=== PATIENT | male | born 1945 | race African-American/Black ===

== ENCOUNTER → 2017-12-05 | Outpatient (CLI) | payer OTHER ==
[~2017-12-05] MED LIST: ALLOPURINOL 10100 M1 PO; APAP500 PO; ASPIR 8181 MG PO; ASPIRIN BUFFER325 MG PO; ASPIRIN EC325 M1 PO; CIPRO250 M1 PO; CITRATE OF MAG296 ML PO; COLCHICINE0.6 MG PO; COZAAR 25 MG TA25 M1 PO; EFFIENT10 MG PO; FLAX SEED OIL1 EACH PO; HUMALOG100 UNIT/1 SQ; IMDUR 60 MG TAB60 M1 PO; INDERAL LA60 MG PO; LANTUS; LANTUS SUBQ; LISINOPRIL20 MG; LISINOPRIL20 MG PO; LIVALO4 MG PO; METHIMAZOLE5 MG PO; MOBIC15 MG PO; NITROGLYCERIN0.4 MG SL; NITROQUICK0.4 MG SL; NORVASC5 MG PO; NOVOLIN R100 UNIT/1 SUBQ; NOVOLOG100 UNIT/1 SUBQ; PLAVIX 75 MG TA75 MG PO; PRAVACHOL80 MG PO; PRAVASTATIN SOD40 MG PO; THYROID; TOPROL XL25 MG PO; TOPROL XL50 MG PO; VITAMIN D1000 UNI1 PO; ZESTRIL10 MG PO; ZETIA10 MG PO; ZOFRAN ODT4 MG PO
== END ==
LOC: MRI 08:48
DX: M19.012 Primary osteoarthritis, left shoulder (principal)

== ENCOUNTER → 2018-11-19 | Outpatient (CLI) | payer OTHER | LOC: ULTRA 13:04 | DX: I73.9 Peripheral vascular disease, unspecified (principal); I99.8 Other disorder of circulatory system; I25.10 Atherosclerotic heart disease of native coronary artery without angina pectoris ==

== ENCOUNTER → 2019-03-03 | Outpatient (CLI) | payer OTHER ==
[~2019-03-03] VITALS: Ht 170.2 cm; Wt 78.9 kg
[2019-03-03 12:01] VITALS: BP 146/66
--- NOTE | 2019-03-04 09:14 | EKG ---
[address] [place] [address] ELECTROCARDIOGRAM REPORT Name: SIRENA SNYDER Room #: REG CLI BernadineMarlinBernadine#: [id number] ������������������ Admission: 03/03/19 ������������������ Attend Phys: Kevin Ybarra MD Discharge: ������������������ Date of : 49 Report #: [id number] ����������������������������������������������������������������� [id number] THIS REPORT FOR: //name// [facility] Test Date: 2019-03-03 Test Time: 12:06:51 Pat Name: SIRENA SNYDER Department: Room: Gender: Tim[place]eller: Mendoza GILMORE : 1945 Requested By: Kevin Ybarra Order Number: [id number] MD: Reynaldo Messer Measurements Intervals [place] Rate: 48 P: 57 W[place]: 165 QRS: 41 QRSD: 90 T: 56 QT: 432 QTc: 386 Interpretive Statements Sinus bradycardia Probable left ventricular hypertrophy Compared to ECG 09/07/2017 12:42:40 no significant change was found Electronically Signed On 03-04-2019 9:13:59 CDT by Reynaldo Messer [email or web address] ��������������������������������������������� <ELECTRONICALLY SIGNED> ���������������������������������������� By: Reynaldo Messer MD, [facility] ��������������������������������������������� 03/04/19 0913 1206 05 Reynaldo Messer MD, FACC /EPI
== END | disposition home or self-care (01) ==
LOC: SPEC 08:46
DX: I70.248 Atherosclerosis of native arteries of left leg with ulceration of other part of lower leg (principal); L97.929 Non-pressure chronic ulcer of unspecified part of left lower leg with unspecified severity; I70.1 Atherosclerosis of renal artery; I10 Essential (primary) hypertension; I25.10 Atherosclerotic heart disease of native coronary artery without angina pectoris; I25.2 Old myocardial infarction; E11.9 Type 2 diabetes mellitus without complications; E78.5 Hyperlipidemia, unspecified; M19.90 Unspecified osteoarthritis, unspecified site; Z85.46 Personal history of malignant neoplasm of prostate; Z95.1 Presence of aortocoronary bypass graft; Z79.4 Long term (current) use of insulin; Z82.49 Family history of ischemic heart disease and other diseases of the circulatory system; Z88.8 Allergy status to other drugs, medicaments and biological substances; Z79.82 Long term (current) use of aspirin; Z79.899 Other long term (current) drug therapy; Z98.890 Other specified postprocedural states

== ENCOUNTER → 2019-10-19 | Outpatient (CLI) | payer OTHER | LOC: SJCVC 15:19 | DX: R00.1 Bradycardia, unspecified (principal); I25.810 Atherosclerosis of coronary artery bypass graft(s) without angina pectoris; E78.00 Pure hypercholesterolemia, unspecified; I73.9 Peripheral vascular disease, unspecified; I25.5 Ischemic cardiomyopathy; I10 Essential (primary) hypertension; E11.9 Type 2 diabetes mellitus without complications; Z79.4 Long term (current) use of insulin; Z95.1 Presence of aortocoronary bypass graft; Z79.899 Other long term (current) drug therapy ==

== ENCOUNTER → 2020-01-06 | Outpatient (CLI) | payer OTHER ==
[~2020-01-06] MED LIST changes: +ALLOPURINOL 10100 M3 PO; +DIOVAN160 MG PO; +METOPROLOL SUCC50 MG PO; +NEURONTIN100 MG PO; +ROSUVASTATIN CA20 MG PO
== END ==
LOC: SJCVCIMAG 08:46 → SJCVC 08:46 → SJCVCIMAG 09:07
DX: I65.23 Occlusion and stenosis of bilateral carotid arteries (principal); I70.201 Unspecified atherosclerosis of native arteries of extremities, right leg; I25.10 Atherosclerotic heart disease of native coronary artery without angina pectoris; E11.9 Type 2 diabetes mellitus without complications; E78.00 Pure hypercholesterolemia, unspecified; I12.9 Hypertensive chronic kidney disease with stage 1 through stage 4 chronic kidney disease, or unspecified chronic kidney disease; N18.9 Chronic kidney disease, unspecified; Z95.1 Presence of aortocoronary bypass graft

== ENCOUNTER 2020-01-10 07:57 | Observation (INO) | payer OTHER ==
[~2020-01-10] VITALS: Ht 172.7 cm; Wt 76.7 kg
[~2020-01-10 07:57] MED LIST changes: -ALLOPURINOL 10100 M3 PO; -DIOVAN160 MG PO; -METOPROLOL SUCC50 MG PO; -NEURONTIN100 MG PO; -ROSUVASTATIN CA20 MG PO
[2020-01-10 08:57] LABS: HEMATOCRIT 35.7 % (42.0-52.0); HEMOGLOBIN 11.8 gm/dL (14.0-18.0); MCH 32.3 pg (26.0-34.0); MCHC 33.1 g/dL (28.0-37.0); MCV 97.7 fL (80.0-100.0); RBC 3.65 mil/uL (4.50-6.00); RDW 12.7 % (10.5-14.5); WBC 6.9 thou/uL (4.0-11.0)
[2020-01-10 09:03] VITALS: BP 160/65
[2020-01-10 09:12] LABS: CALCIUM 9.5 mg/dL (8.5-10.1); CREATININE 1.7 mg/dL (0.7-1.3); POTASSIUM 5.1 mmol/L (3.5-5.1)
[2020-01-10] MEDS ORDERED: METOPROLOL SUCC50 MG PO (09:14)
[2020-01-10] MEDS ORDERED: ALLOPURINOL 10100 M3 PO (09:16)
[2020-01-10] MEDS ORDERED: NEURONTIN100 MG PO (09:17)
[2020-01-10] MEDS ORDERED: ROSUVASTATIN CA20 MG PO (09:17)
[2020-01-10] MEDS ORDERED: DIOVAN160 MG PO (09:18)
--- NOTE | 2020-01-10 11:09 | EKG ---
[facility] [place] [address] ELECTROCARDIOGRAM REPORT Name: SIRENA SNYDER [id number] Admission: 01/10/20 Attend Phys: Kevin Ybarra MD Discharge: Date of : 49 Report #: [id number] THIS REPORT FOR: cc: Kevin Snider David J. DO Couchonnal, Luis F. MD ~ THIS REPORT FOR: //name// [facility] Test Date: 2020-01-10 Test Time: 08:52:15 Pat Name: SIRENA SNYDER Department: Room: Gender: Grid Operator: : 1945 Requested By: Nima Loza Order Number: [id number] : Michel Rogers Measurements Intervals [place] Rate: 58 P: 66 MD: 157 QRS: 53 QRSD: 90 T: 65 QT: 435 QTc: 428 Interpretive Statements Sinus rhythm Probable left atrial enlargement Probable left ventricular hypertrophy Baseline wander in lead(s) II,III,aVF Compared to ECG 03/03/2019 12:06:51 Sinus bradycardia no longer present Electronically Signed On 01-10-2020 11:08:09 CDT by Michel Rogers [email or web address] <ELECTRONICALLY SIGNED> By: Michel Rogers MD 01/10/20 1108 0852 0852 Michel Rogers MD /EPI
[2020-01-10 17:20] VITALS: BP 150/69
[2020-01-10 17:25] VITALS: BP 150/69
--- NOTE | 2020-01-10 18:49 | NUR ---
PT CARE ASSUMED APPROXIMATELY 0725. PT ASSESSMENT CHARTED. PT MEDICATION CHARTED. RT STENT POPLITEAL ARTERY, SOLEDAD. LT GROIN STENT, SOFT C/D/I. HEART CATH NO INTERVENTION. HEMOSTASIS 164. PT DENIES PAIN.
[2020-01-10 19:41] VITALS: BP 186/67
[2020-01-10 21:48] VITALS: BP 186/67
--- NOTE | 2020-01-11 10:49 | CATHLAB ---
[facility] [place] [address] INVASIVE PROCEDURE REPORT Name: SIRENA SNYDER Room #: 201-P [facility] Aureliano Mcclure#: [id number] Admission: 01/10/20 Attend Phys: Kevin Ybarra MD Discharge: 01/10/20 Date of : 49 Report #: [id number] THIS REPORT FOR: cc: Kevin Snider David J. DO Mancuso, Gerald M. MD [facility] ~ APPROVED REPORT Study performed: 01/10/2020 16:00:37 Patient Details The patient is a 74 year-old male Event Personnel Kevin Ybarra Interventional Radiologist, Sandra Logan RN RN, Zeferino Izaguirre RT(R)(CV) Luis M Nicole Sherra RTR Monitor, Gaby Cervantes RTR Sheet Catcher, Janet Cole Monitor, Nima Loza Lead Operator Procedures Performed Left Heart Cath Coronaries, Bypass Grafts [id number] LHCCORCABG 42072 Initial Mod Sed Same Phys/QHP Gr5y 663140 54893 Mod Sed Same Phys/QHP Ea [id number] Hemostasis w/ Mynx Indication Chest pain Procedure Narrative The was infiltrated with 1% Lidocaine subcutaneous anesthesia. A 6F SHEATH sheath was inserted into the LFA^. Coronary angiography was performed using coronary diagnostic catheters. The right coronary system was accessed and visualized with a JR4 catheter. The left coronary system was accessed and visualized with a JL4 catheter. The left ventricle was accessed and visualized with a STR PIG catheter. Left ventriculogram was performed in 30 degree projection. The patient tolerated the procedure well and there were no complications associated with the procedure. There was no hematoma. 2 GRAFTS, BELTRAN TO LAD AND SVG TO OM. Intraoperative Conscious Sedation Sedation start time: 1604 Case end Time: 1640 Fentanyl mcg Versed 1 mg [facility] [place] [address] INVASIVE PROCEDURE REPORT Name: LILLIANSIRENA Room #: 201-P [facility] IN M.R.#: [id number] Admission: 01/10/20 Attend Phys: Kevin Ybarra, Discharge: 01/10/20 Date of : 49 Report #: [id number] Fluoro Time: 1427.00 minutes Dose: DAP 76271.50 cGycm2 459 mGy Contrast Type and Amount: Visipaque 62 ml Hemodynamics The aortic pressure is 132/56 mmHg with a mean of 84 mmHg. The left ventricular pressure is 136/8 mmHg with a mean of mmHg. The left ventricular end diastolic pressure is 16 mmHg. PCI Technique Lesion Percutaneous coronary intervention was performed on the Popliteal. Conclusion #1. Normal left ventricular size and systolic function EF 60% #2 mildly diseased left main giving rise to the circumflex nondominant and an occluded LAD. #3 the LAD is eccentric 60 to 70% lesion and then is subtotaled after the septal gas producer. #4 BELTRAN to LAD is widely patent. Briskly fills the distal two thirds of the LAD. There is a stent placed in the LAD and distal to that stent there is a 50 to 60% eccentric lesion no occlusive disease noted. #5 circumflex OM the first OM is occluded this is filling the diffusely diseased distal circumflex and OM system. Not amenable to intervention. Is supplying some portion of the posterior inferior lateral wall. #6 saxman right coronary artery occluded #7 the SVG to the PDA occluded #8 SVG to diagonal occluded #9 SVG to a small first OM is patent with mild irregularities some supplied to the posterior lateral wall. No occlusive disease Recommendations and plan: Continue aggressive risk factor modification. No indication for coronary intervention. <ELECTRONICALLY SIGNED> By: Nima Loza MD, [facility] 01/11/20 1047 1047 1047 Nima Loza MD, FACC /INF
== END 2020-01-10 21:35 | disposition home or self-care (01) ==
LOC: CATH 07:57 → 2N 17:45
PROVIDERS: Internal Medicine Cardiovascular Disease; ADMIT Nuclear Medicine Nuclear Cardiology
DX: I70.212 Atherosclerosis of native arteries of extremities with intermittent claudication, left leg (principal); I10 Essential (primary) hypertension; L97.919 Non-pressure chronic ulcer of unspecified part of right lower leg with unspecified severity

== ENCOUNTER → 2020-01-11 | Outpatient (CLI) | payer OTHER ==
[~2020-01-11] MED LIST changes: +ALLOPURINOL 10100 M3 PO; +DIOVAN160 MG PO; +METOPROLOL SUCC50 MG PO; +NEURONTIN100 MG PO; +ROSUVASTATIN CA20 MG PO
== END ==
LOC: HYPER 10:12
DX: I70.235 Atherosclerosis of native arteries of right leg with ulceration of other part of foot (principal); E11.621 Type 2 diabetes mellitus with foot ulcer; L97.512 Non-pressure chronic ulcer of other part of right foot with fat layer exposed; E11.51 Type 2 diabetes mellitus with diabetic peripheral angiopathy without gangrene; M19.90 Unspecified osteoarthritis, unspecified site; I25.10 Atherosclerotic heart disease of native coronary artery without angina pectoris; E78.00 Pure hypercholesterolemia, unspecified; I11.0 Hypertensive heart disease with heart failure; I50.9 Heart failure, unspecified; E78.5 Hyperlipidemia, unspecified; I25.2 Old myocardial infarction; Z85.46 Personal history of malignant neoplasm of prostate; Z86.718 Personal history of other venous thrombosis and embolism; Z79.82 Long term (current) use of aspirin; Z79.4 Long term (current) use of insulin; Z90.5 Acquired absence of kidney; Z95.1 Presence of aortocoronary bypass graft

== ENCOUNTER 2020-01-23 17:24 | Inpatient (IN) | payer OTHER ==
[~2020-01-23] VITALS: Ht 172.7 cm; Wt 74.4 kg
--- NOTE | ~2020-01-23 | EMS ---
[address] [address] EMS Patient Care Report Name: SIRENA SNYDER Room #: 208-P [facility] IN M.R.#: [id number] Admission: 01/23/20 Attend Phys: Shira Sousa MD Discharge: 01/25/20 Date of : 49 Report #: [id number] THIS REPORT FOR: //name// Report Transmitted: 01/27/2020 12:13 EMS Care Summary [place], [place]/[facility] Incident [id number] @ 01/23/2020 16:38 Incident Location [address] [place] [address] Patient SIRENA SNYDER Male, 74 Years 1945 Patient Address [address] [place] [address] Patient History Diabetes,Cardiac - Stent, Patient Allergies Codeine, Patient Medications Insulin, Chief Complaint NEAR SYNCOPE Disposition Transported No Lights/[place] Dispatch Reason Falls Transported To [facility] Narrative PT FOUND LYING SUPINE ON FLOOR IN BEDROOM OF HIS HOME. PT STATES THAT HE WAS GETTING OUT OF BED AND "EVERYTHING GOT BLURRY" AND HIS LEGS GAVE OUT AND HE FELL TO THE FLOOR. PT DENIES ANY INJURY FROM FALLING. PT STATES THAT ONE EMS ARRIVAL HE FEELS A LITTLE BETTER BUT IS STILL DIZZY. PT IS DIAPHORETIC AND [facility] [address] [place] [address] EMS Patient Care Report Name: SIRENA SNYDER Room #: 208-P [facility] IN M.R.#: [id number] Admission: 01/23/20 Attend Phys: Shira Sousa MD Discharge: 01/25/20 Date of : 49 Report #: [id number] COOL. PT ASSISTED TO HIS FEET BY EMS AND HE STATES THAT HE REMAINS DIZZY BUT IT DOES NOT GET WORSE. PT STATES THAT HE HAD TWO CARDIAC STENTS PLACED LAST WEEK. PT AGREES TO TRANSPORT BY EMS. PT HS NO VISIBLE TRAUMA. PT HAS NO COMPLAINTS OF PAIN, SOB, CP OR TRAUMA. NO CHANGES NOTED ENROUTE. Initial Vitals @17:00P: 59,SC Suspected: false @17:01P: 62,SpO2: 83, @16:55P: 55,R: 16,BP: 122/66,Pain: 0/10,GCS: 15,Glucose: 70,SpO2: 100,Revised Trauma: 12, Assessments @16:46MENTAL:No Abnormalities,SKIN:Diaphoresis,HEENT:Head/Face: No Abnormalities,LUNG SOUNDS:General: No Abnormalities,ABDOMEN:General: No Abnormalities,PELVIS//GI:No Abnormalities,EXTREMITIES:PULSE:NEURO:No Abnormalities, Impression Syncope / Fainting Procedures @16:46ALS AssessmentResponse: UnchangedSucceeded@17:0012-Lead ECGResponse: UnchangedSucceeded@16:593-Lead ECGResponse: UnchangedSucceeded@16:59Saline Lock 0cc (18 ga) Site: Antecubital-LeftResponse: UnchangedSucceeded@16:58StretcherResponse: Unchanged Timeline 16:35,Call Received 16:35,Dispatch Notified 16:38,Dispatched 16:39,En Route 16:45,On Scene 16:46,At Patient 16:46,ALS Assessment,Response: UnchangedSucceeded, 16:55,BP: 122/66 M,PULSE: 55,RR: 16 R,SPO2: 100 Ox,ETCO2: ,B,PAIN: 0,GCS: 15, 16:58,Stretcher,Response: Unchanged 16:59,3-Lead ECG,Response: UnchangedSucceeded, 16:59,Saline Lock 0cc 18 ga Site: Antecubital-Left,Response: UnchangedSucceeded, 17:00,12-Lead ECG,Response: UnchangedSucceeded, 17:00,BP: / M,PULSE: 59,RR: R,SPO2: Ox,ETCO2: ,BG: ,PAIN: ,GCS: , 17:01,BP: / M,PULSE: 62,RR: R,SPO2: 83 Ox,ETCO2: ,BG: ,PAIN: ,GCS: , 17:03,Depart Scene 17:19,At Destination 17:31,Call Closed [facility] [address] [place] [address] EMS Patient Care Report Name: LILLIANSIRENA Room #: 208-P [facility] IN M.R.#: [id number] Admission: 01/23/20 Attend Phys: Shira Sousa MD Discharge: 01/25/20 Date of : 49 Report #: [id number] Disclaimer v1.1 Copyright 2020 [employer] This EMS Care Summary contains data elements from the applicable legal record (which may be displayed differently). It is designed to provide pertinent information for the following purposes: continuity of care, clinical quality, and state data reporting. The complete legal record is available to ED staff and administrators of the receiving hospital in [employer] Patient Tracker. All data is provided "as is."
[2020-01-23 17:25] VITALS: BP 152/67
[2020-01-23 17:49] LABS: HEMATOCRIT 34.5 % (42.0-52.0); HEMOGLOBIN 11.3 gm/dL (14.0-18.0); MCH 31.8 pg (26.0-34.0); MCHC 32.6 g/dL (28.0-37.0); MCV 97.4 fL (80.0-100.0); RBC 3.54 mil/uL (4.50-6.00)
[2020-01-23 17:56] LABS: ANION GAP 11 mmol/L (7-16); BUN 52 mg/dL (7-18); CALCIUM 9.5 mg/dL (8.5-10.1); CHLORIDE 103 mmol/L (98-107); CO2 24 mmol/L (21-32); GLUCOSE 47 mg/dL (74-106); POTASSIUM 4.8 mmol/L (3.5-5.1); SODIUM 138 mmol/L (136-145)
[2020-01-23 18:06] LABS: ALBUMIN 3.1 g/dL (3.4-5.0); DIRECT BILIRUBIN < 0.1 mg/dL (<0.1-0.2); SGOT 29 U/L (15-37); SGPT 27 U/L (30-65); TOTAL BILIRUBIN 0.3 mg/dL (<0.1-1.0); TOTAL PROTEIN 7.8 g/dL (6.4-8.2); TROPONIN-I <0.06 ng/mL (<0.06)
--- NOTE | 2020-01-23 18:54 | NUR ---
JOSE [phone], DAUGHTER. OK TO TALK WITH PER PT. PLEASE CALL WITH UPDATE
[2020-01-23 19:47] VITALS: BP 110/92
[2020-01-23 20:23] VITALS: BP 139/63
[2020-01-23 20:26] LABS: URINE BILIRUBIN NEGATIVE (Negative); URINE BLOOD 1+ (Negative); URINE CLARITY CLEAR; URINE COLOR YELLOW; URINE GLUCOSE-RANDOM* NEGATIVE (Negative); URINE KETONES NEGATIVE (Negative); URINE LEUKOCYTES-REFLEX NEGATIVE (Negative); URINE NITRITE-REFLEX NEGATIVE (Negative); URINE PROTEIN (DIPSTICK) 2+ (Negative); URINE SPECIFIC GRAVITY 1.025 (1.005-1.035); URINE UROBILINOGEN 0.2 E.U./dl (0.2-1.0)
[2020-01-23 20:37] LABS: BACTERIA-REFLEX 1-9 Few /HPF (None Seen); CASTS None Seen /LPF (None Seen); CRYSTALS None Seen /LPF (None Seen); SQUAMOUS 0-3 Few /LPF (0-3); URINE RBC 0-2 Rare /HPF (0-2); URINE WBC-REFLEX 0-5 Rare /HPF (0-5)
[2020-01-24 00:21] VITALS: BP 139/63
[2020-01-24 04:40] VITALS: BP 148/71
[2020-01-24 05:22] LABS: ANION GAP 8 mmol/L (7-16); BUN 48 mg/dL (7-18); CALCIUM 8.6 mg/dL (8.5-10.1); CHLORIDE 104 mmol/L (98-107); CO2 25 mmol/L (21-32); CREATININE 1.9 mg/dL (0.7-1.3); GLUCOSE 297 mg/dL (74-106); SODIUM 137 mmol/L (136-145); TROPONIN-I <0.06 ng/mL (<0.06)
[2020-01-24 05:23] LABS: POTASSIUM 5.9 mmol/L (3.5-5.1)
[2020-01-24 07:30] VITALS: BP 147/62
--- NOTE | 2020-01-24 07:57 | EKG ---
[facility] [place] [address] ELECTROCARDIOGRAM REPORT Name: SIRENA SNYDER Room #: 208-P ADM IN M.R.#: [id number] Admission: 01/23/20 Attend Phys: Philippe Morrissey MD Discharge: Date of : 49 Report #: [id number] THIS REPORT FOR: cc: Kevin Snider David J. DO Lundgren,Reynaldo Porras MD [facility] ~ THIS REPORT FOR: //name// [facility] ED Test Date: 2020-01-23 Test Time: 17:40:40 Pat Name: SIRENA SNYDER Department: Room: 208 Gender: M Nursing Clinical Director: ENOC : 1945 Requested By: Lisa Ulloa Order Number: [id number] MD: Reynaldo Messer Measurements Intervals [place] Rate: 54 P: 25 [place]: 161 QRS: 37 QRSD: 92 T: 71 QT: 418 QTc: 397 Interpretive Statements Sinus rhythm Abnormal R-wave progression, early transition Early R wave progression Compared to ECG 01/10/2020 08:52:15 No significant changes Electronically Signed On 01-24-2020 7:55:49 CDT by Reynaldo Messer [email or web address] <ELECTRONICALLY SIGNED> By: Reynaldo Messer MD, [facility] 01/24/20 0755 1740 1740 Reynaldo Messer MD, [facility] /EPI
--- NOTE | 2020-01-24 08:22 | NUR ---
RECEIVED REPORT FROM [facility] ED RN.PATIENT ARRIVED TO ROOM 208 AROUND 2019.PATIENT IS A/O X 4.PATIENT WISHES TO BE DNR AND OBTAINED AN ORDER FROM THE GEOPHYSICS SCIENTIST.DENIES PAIN BUT CLAIMED THAT IN THE ED RIGHT TOE WOUND HAS BURNING SENSATION AND ITS THROBBING.PICTURE TAKEN.MONITOR SHOWS SINUS GIANNA ARRHYTHMIA IN THE 47'S TO 63'S.BLOOD GLUCOSE IN THE ED IS 47, HERE IS 67.APPLE JUICE AND SANDWICH WAS GIVEN AND BLOOD GLUCOSE INCREASED TO 98.THIS MORNING POTASSIUM LEVEL IS 5.9.D50 AND REGULAR INSULIN WAS GIVEN AND RT WAS CALLED FOR A HIGH DOSE BREATHING TREATMENT.CARDIOLOGY WAS CONSULTED.POC CONTINUED.
--- NOTE | 2020-01-24 09:37 | NUR ---
REPORT RECIEVED FROM SILVIO BISHOP. PT ASSESSED, ALERT AND ORIENTED X 4, DENIES PAIN, BUT HAS OCCASIONAL PAIN IN HIS RIGHT GREAT TOE. HE SAID HE DOENS'T TAKE PAIN MEDS FOR IT, SITTING AND LETTING IT DANGLE OFF THE SIDE OF THE BED HELPS. VSS, CARDIOLOGY FARM BUTCHER IN TO SEE PT, PT STATED HE HAD SOME LEFT SIDED CHEST TIGHTNESS. IT WAS RELIEVED BY LYING DOWN, CARD FARM BUTCHER IN TO SEE PT AND SAID SHE'LL LET SRINIVASA KNOW. CALL LIGHT AT SIDE, WILL MONITOR. SPOKE WITH AMEYA ABOUT FATHER.
[2020-01-24 10:00] LABS: CALCIUM 8.8 mg/dL (8.5-10.1); MAGNESIUM 2.1 mg/dL (1.8-2.4); PHOSPHORUS 2.8 mg/dL (2.5-4.9); POTASSIUM 5.1 mmol/L (3.5-5.1)
--- NOTE | 2020-01-24 11:18 | 2DMMODE ---
[facility] [place] [address] 2 D/M-MODE ECHOCARDIOGRAM Name: SIRENA SNYDER Room #: 208-P ADM IN M.R.#: [id number] Admission: 01/23/20 Attend Phys: Shira Sousa MD Discharge: Date of : 49 Report #: [id number] THIS REPORT FOR: cc: Kevin Snider David J. DO Mancuso, Gerald M. MD [facility] ~ APPROVED REPORT Study performed: 01/24/2020 10:26:37 EXAM: Comprehensive 2D, Doppler, and color-flow Echocardiogram Patient Location: Bedside Room #: 208 Status: routine BSA: 1.88 HR: 69 bpm BP: 147/62 mmHg Rhythm: Sinus arrhythmia Other Information Study Quality: Adequate Indications Near syncope, bradycardia. Hx: CABG, stent, PVD, HTN, HLP. 2D Dimensions RVDd: 40.54 mm IVSd: 13.00 (7-11mm) LVOT Diam: 22.38 (18-24mm) LVDd: 42.00 mm PWd: 13.00 (7-11mm) Ascending Ao: 33.36 (22-36mm) LVDs: 24.56 (25-40mm) Aortic Root: 35.15 mm Volumes Left Atrial Volume (Systole) Single Plane 4CH: 40.26 mL Single Plane 2CH: 38.75 mL LA ESV Index: 23.00 mL/m2 Aortic Valve AoV Peak Demian.: 1.84 m/s AO Peak Gr.: 13.52 mmHg LVOT Max P.34 mmHg LVOT Max V: 1.35 m/s NOLBERTO Vmax: 2.[address] [facility] [address] [place] [address] 2 D/M-MODE ECHOCARDIOGRAM Name: SIRENA SNYDER Room #: 208-P [facility] IN ..#: [id number] Admission: 01/23/20 Attend Phys: Shira Sousa, Discharge: Date of : 49 Report #: [id number] Mitral Valve E/A Ratio: 1.4 MV Decel. Time: 173.67 ms MV E Max Demian.: 0.83 m/s MV A Demian.: 0.58 m/s MV PHT: 50.36 ms IVRT: 59.98 ms Pulmonary Valve PV Peak Demian.: 1.38 m/s PV Peak Gr.: 7.60 mmHg Pulmonary Vein P Vein S: 0.87 m/s P Vein D: 0.76 m/s P Vein S/D Ratio: 1.14 Tricuspid Valve TR Peak Demian.: 2.91 m/s RAP Estimate: 5.00 mmHg TR Peak Gr.: 34.00 mmHg PA Pressure: 39.00 mmHg Left Ventricle The left ventricle is normal size. There is normal LV segmental wall motion. Mild to moderate concentric left ventricular hypertrophy. Left ventricular systolic function is hyperdynamic. LVEF is 65-70%. Right Ventricle The right ventricle is normal size. The right ventricular systolic function is normal. Atria The left atrium size is normal. The right atrium size is normal. Aortic Valve Aortic valve is mildly calcified. No aortic regurgitation is present. There is no aortic valvular stenosis. Mitral Valve The mitral valve is normal in structure. There is no mitral valve regurgitation noted. No evidence of mitral valve stenosis. Tricuspid Valve The tricuspid valve is normal in structure. Mild tricuspid [facility] [address] [place] [address] 2 D/M-MODE ECHOCARDIOGRAM Name: SIRENA SNYDER Room #: 208-P [facility] IN M.R.#: [id number] Admission: 01/23/20 Attend Phys: Shira Sousa, Discharge: Date of : 49 Report #: [id number] regurgitation. Estimated PAP is 40mmHg. Pulmonic Valve The pulmonary valve is normal in structure. Trace pulmonic regurgitation. Great Vessels The aortic root is normal in size. The ascending aorta is normal in size. Pericardium There is no pericardial effusion. <Conclusion> The left ventricle is normal size. Mild to moderate concentric left ventricular hypertrophy. Left ventricular systolic function is hyperdynamic. LVEF is 65-70%. The right ventricle is normal size. The left atrium size is normal. Aortic valve is mildly calcified. There is no aortic valvular stenosis. There is no mitral valve regurgitation noted. Mild tricuspid regurgitation. Estimated PAP is 40mmHg. The aortic root is normal in size. There is no pericardial effusion. <ELECTRONICALLY SIGNED> By: Nima Loza MD, FACC 01/24/20 1116 15 15 Nima Loza MD, FACC /INF
[2020-01-24 11:30] VITALS: BP 144/55
--- NOTE | 2020-01-24 14:50 | NUR ---
ORDERS RECEIVED FOR EVAL AND TREAT. Pt HAD NEAR SYNCOPAL EPISODE DUE TO HYPOGLYCEMIA AND NOW BACK TO NORMAL. SPOKE WITH Pt WHO STATES HE HAS BEEN GETTING UP WITHOUT DIFFICULTY. MAIN COMPLAINT IS RT GREAT TOE PAIN. WOUND CARE IS ON BOARD. O.T. EVALUATED Pt AND ARE SIGNING OFF. Pt DECLINING FORMAL P.T. EVAL HE FEELS BACK TO NORMAL. WILL BE AVAILABLE TO DO FORMAL EVAL IF Pt HAS Pt HAS PROCEDURES ON GREAT TOE AND NOT MOVING WELL.
[2020-01-24 16:30] VITALS: BP 175/69
--- NOTE | 2020-01-24 18:22 | NUR ---
BLADDER SCAN DONE, 300 RESIDUAL
[2020-01-24 20:51] VITALS: BP 152/62
[2020-01-25 05:30] LABS: ABSOLUTE NEUTROPHILS 5.6 thou/uL (1.4-8.2); BASOPHILS 0.8 % (0.0-2.0); EOSINOPHILS 3.7 % (0.0-3.0); HEMATOCRIT 32.3 % (42.0-52.0); HEMOGLOBIN 10.6 gm/dL (14.0-18.0); LYMPHOCYTES 23.7 % (24.0-44.0); MCH 32.2 pg (26.0-34.0); MCHC 32.8 g/dL (28.0-37.0); MCV 98.2 fL (80.0-100.0); MONOCYTES 9.9 % (1.0-8.0); PLATELET COUNT 203 thou/uL (150-400); POLYS 61.9 % (36.0-66.0); RBC 3.28 mil/uL (4.50-6.00); WBC 9.8 thou/uL (4.0-11.0)
[2020-01-25 05:49] LABS: ALBUMIN 2.5 g/dL (3.4-5.0); CALCIUM 8.8 mg/dL (8.5-10.1); CREATININE 1.6 mg/dL (0.7-1.3); MAGNESIUM 2.1 mg/dL (1.8-2.4); POTASSIUM 5.3 mmol/L (3.5-5.1); TOTAL BILIRUBIN 0.3 mg/dL (<0.1-1.0); TOTAL PROTEIN 6.6 g/dL (6.4-8.2)
--- NOTE | 2020-01-25 06:00 | NUR ---
Took over care of pt. around 2099. No syncopal episode. Medicated for right great toe pain with some relief. Bed alarm on for safety. Voiding per urinal. Making progress towards care plan goals.
[2020-01-25 06:05] VITALS: BP 134/54
[2020-01-25 08:00] VITALS: BP 131/57; BP 137/62; BP 154/63
--- NOTE | 2020-01-25 09:55 | NUR ---
Received awake on bed. Due medications
--- NOTE | 2020-01-25 09:58 | NUR ---
Received awake on bed. Due medications given as prescribed, able to swallow meds w/o difficulty. On room air. A+Ox4. On heart monitoting- SB-SR on the monitor; no complaints of chest pain, no heaviness and crushing sensation made. On Renal, carb controlled diet- tolerating well; no nausea, no vomiting and no abdominal pain noted. On blood sugar monitoring, taken and recorded accordingly, with sliding scale insulin ordered- given as prescribed. Continent of bowel and bladder- able to use the urinal. With NS at 75cc/hr, infusing well at R FA. With wound at R great toe- wound team aware, with wound care orders. Assisted in ADLs. No complaints of pain made. To continue monitoring patient.
[2020-01-25] MEDS ORDERED: METOPROLOL SUCC25 M1 PO (12:20)
[2020-01-25 12:39] VITALS: BP 131/57
--- NOTE | 2020-01-25 14:51 | NUR ---
PT ON SERVICE WITH [facility] PRIOR TO ADMISSION DISCHARGING TODAY TO HOME AND RESUME HH WITH [facility] FAXED DC ORDERS/SUMMARY SPOKE WITH KODY IN INTAKE SHE RECEIVED ORDERS AND WILL NOTIFY PT TIME OF VISITS.
[2020-01-26 00:07] LABS: GLYCOHEMOGLOBIN (HGB A1C) 7.1 % (4.8-5.6)
--- NOTE | 2020-01-26 12:05 | HC ---
[facility] [place] [address] CONSULTATION Name: SIRENA SNYDER Room #: 208-P [facility] IN M.R.#: [id number] Admission: 01/23/20 Attend Phys: Shria Sousa MD Discharge: 01/25/20 Date of : 49 Report #: [id number] THIS REPORT FOR: cc: Kevin Snider,Perry Lowery MD ~ CC: Kevin Sousa DATE OF SERVICE: 01/24/2020 CHIEF COMPLAINT: Right great toe ulceration. HISTORY OF PRESENT ILLNESS: This is a 74-year-old male patient who is admitted to the hospital with a near syncopal episode. We have followed him as an outpatient for an ulceration of his right great toe and I have been asked to see him with regard to wound care here in the hospital. The patient did undergo angiography on 01/10/2020, underwent a right peroneal artery atherectomy and stent placement after having been noted to have a critical grade stenosis of the proximal right peroneal artery with additional high-grade stenosis of the mid and distal right peroneal arteries, which were treated with angioplasty and stent placement. He was noted to have previous proximal left posterior tibial artery stent that was visualized to have good patency. Patient denies significant pain in his toe at this time, but does note some dry peeling skin. PAST MEDICAL HISTORY: Positive for history of peripheral vascular disease, status post stent placement in both lower extremities, history of coronary artery disease, diabetes, hypertension, hyperlipidemia, ischemic cardiomyopathy, previous right nephrectomy and history of prostate cancer. ALLERGIES: LIPITOR, CODEINE AND TRAMADOL. MEDICATIONS: Include Lantus insulin, NovoLog insulin, Flaxseed oil, Effient, Nitrostat, allopurinol, Neurontin, rosuvastatin, Diovan, aspirin, Toprol, methimazole. SOCIAL HISTORY: Negative for alcohol or tobacco use. FAMILY HISTORY: Noncontributory. REVIEW OF SYSTEMS: CONSTITUTIONAL: The patient denies fever, chills or weight loss. NEUROLOGICAL: The patient denies focal weakness, did have a syncopal episode. Denies numbness or tingling. EYES: The patient denies visual changes, redness, or drainage. ENT: The patient denies earache, nasal drainage, sore throat. [address] [place] [address] CONSULTATION Name: SIRENA SNYDER Room #: 208-P [facility] IN M.R.#: [id number] Admission: 01/23/20 Attend Phys: Shira Sousa MD Discharge: 01/25/20 Date of : 49 Report #: [id number] CARDIOVASCULAR: The patient denies chest pain or palpitations, did have the syncopal or near syncopal event. He does note some diaphoresis and lightheadedness associated with this. LUNGS: The patient denies cough or shortness of breath. GASTROINTESTINAL: Denies nausea, vomiting, diarrhea or abdominal pain. ORTHOPEDIC: The patient is aware of the ulceration on the right great toe. Other systems are negative in a 14-point review of systems. PHYSICAL EXAMINATION: VITAL SIGNS: At this time, include temperature 36.8, pulse 87, respiratory rate 18, blood pressure 144/55. GENERAL: This is a chronically ill-appearing male patient who appears to be in minimal distress. HEENT: Head normocephalic. Nose and throat clear. NECK: Supple. LUNGS: Clear. ABDOMEN: Soft. Bowel sounds present. EXTREMITIES: Lower extremities demonstrate diminished distal pulses. He does have a large area of eschar involving the medial aspect of the right great toe. There is some dry skin laterally and inferiorly that is peeling away with what appears to be intact epithelium beneath. The eschar is dry and stable and intact. There is a small bit of odor, although do not find any particular drainage and cannot find an exact location for the odor. NEUROLOGIC: The patient is alert and oriented, moving all 4 extremities spontaneously. LABORATORY DATA: Sodium 132, potassium 5.1, chloride 100, BUN 48, creatinine 2.0, glucose is 379. Albumin is 3.1. White blood cell count 10,000 with a hemoglobin of 11.3. CLINICAL IMPRESSION: 1. Arterial ulcer involving the right great toe. 2. Peripheral vascular disease, status post right peroneal artery angioplasty and stent placement within the last 2 weeks. 3. Near syncope. 4. Ischemic cardiomyopathy. 5. Type 2 diabetes mellitus. 6. Hypertension. 7. Hyperlipidemia. RECOMMENDATIONS: At this point in time, the eschar on the toe is dry and stable; therefore, it will be left intact. We will apply "Betadine paint" daily to maintain the eschar dry, stable and intact. We have peeled away some of the dry peeling epidermis laterally. We will recommend continuation of current [facility] [address] [place] [address] CONSULTATION Name: SIRENA SNYDER Room #: 208-P DIS IN M.R.#: [id number] Admission: 01/23/20 Attend Phys: Shira Sousa MD Discharge: 01/25/20 Date of : 49 Report #: [id number] medications, ongoing nutritional support, maintain glycemic control and wound healing. I appreciate being asked to see the patient in consultation. <ELECTRONICALLY SIGNED> By: Perry Huang MD 01/26/20 1205 1044 1119 Perry Huang MD /nt
== END 2020-01-25 14:43 | disposition home health service (06) | DRG 638 ==
LOC: ER 17:24 → 2N 18:40 → EROBS 18:40 → 2N 20:22
PROVIDERS: Emergency Medicine; Nurse Practitioner Family; ADMIT Internal Medicine
DX: E11.649 Type 2 diabetes mellitus with hypoglycemia without coma (principal); E46 Unspecified protein-calorie malnutrition; N17.0 Acute kidney failure with tubular necrosis; N17.9 Acute kidney failure, unspecified; R55 Syncope and collapse; I25.5 Ischemic cardiomyopathy; M19.90 Unspecified osteoarthritis, unspecified site; I25.10 Atherosclerotic heart disease of native coronary artery without angina pectoris; E11.621 Type 2 diabetes mellitus with foot ulcer; E11.51 Type 2 diabetes mellitus with diabetic peripheral angiopathy without gangrene; E86.0 Dehydration; E87.5 Hyperkalemia; L97.519 Non-pressure chronic ulcer of other part of right foot with unspecified severity; E11.22 Type 2 diabetes mellitus with diabetic chronic kidney disease; N18.9 Chronic kidney disease, unspecified; I10 Essential (primary) hypertension; E78.5 Hyperlipidemia, unspecified; Z95.1 Presence of aortocoronary bypass graft; Z85.46 Personal history of malignant neoplasm of prostate; Z90.5 Acquired absence of kidney; Z79.4 Long term (current) use of insulin; Z79.82 Long term (current) use of aspirin; Z88.5 Allergy status to narcotic agent; Z88.8 Allergy status to other drugs, medicaments and biological substances
CPT/HCPCS: 10081

== ENCOUNTER → 2020-01-27 | Outpatient (CLI) | payer OTHER ==
[~2020-01-27] MED LIST changes: +METOPROLOL SUCC25 M1 PO
== END ==
LOC: HYPER 13:29
DX: E11.621 Type 2 diabetes mellitus with foot ulcer (principal); I70.235 Atherosclerosis of native arteries of right leg with ulceration of other part of foot; L97.511 Non-pressure chronic ulcer of other part of right foot limited to breakdown of skin; L97.521 Non-pressure chronic ulcer of other part of left foot limited to breakdown of skin; E11.51 Type 2 diabetes mellitus with diabetic peripheral angiopathy without gangrene; E11.22 Type 2 diabetes mellitus with diabetic chronic kidney disease; I13.0 Hypertensive heart and chronic kidney disease with heart failure and stage 1 through stage 4 chronic kidney disease, or unspecified chronic kidney disease; N18.9 Chronic kidney disease, unspecified; I50.9 Heart failure, unspecified; E78.00 Pure hypercholesterolemia, unspecified; E78.5 Hyperlipidemia, unspecified; I25.10 Atherosclerotic heart disease of native coronary artery without angina pectoris; I25.5 Ischemic cardiomyopathy; I25.2 Old myocardial infarction; K21.9 Gastro-esophageal reflux disease without esophagitis; M19.90 Unspecified osteoarthritis, unspecified site; M10.9 Gout, unspecified; Z95.818 Presence of other cardiac implants and grafts; Z85.46 Personal history of malignant neoplasm of prostate; Z86.718 Personal history of other venous thrombosis and embolism; Z95.1 Presence of aortocoronary bypass graft

== ENCOUNTER → 2020-02-03 | Outpatient (CLI) | payer OTHER | LOC: HYPER 11:21 | DX: E11.621 Type 2 diabetes mellitus with foot ulcer (principal); I70.235 Atherosclerosis of native arteries of right leg with ulceration of other part of foot; L97.511 Non-pressure chronic ulcer of other part of right foot limited to breakdown of skin; E11.51 Type 2 diabetes mellitus with diabetic peripheral angiopathy without gangrene; E11.22 Type 2 diabetes mellitus with diabetic chronic kidney disease; I13.0 Hypertensive heart and chronic kidney disease with heart failure and stage 1 through stage 4 chronic kidney disease, or unspecified chronic kidney disease; N18.9 Chronic kidney disease, unspecified; I50.9 Heart failure, unspecified; E78.00 Pure hypercholesterolemia, unspecified; E78.5 Hyperlipidemia, unspecified; I25.10 Atherosclerotic heart disease of native coronary artery without angina pectoris; I25.5 Ischemic cardiomyopathy; I25.2 Old myocardial infarction; K21.9 Gastro-esophageal reflux disease without esophagitis; M10.9 Gout, unspecified; M19.90 Unspecified osteoarthritis, unspecified site; Z95.1 Presence of aortocoronary bypass graft; Z85.46 Personal history of malignant neoplasm of prostate; Z86.718 Personal history of other venous thrombosis and embolism; Z95.818 Presence of other cardiac implants and grafts ==

== ENCOUNTER → 2020-02-10 | Outpatient (CLI) | payer OTHER | LOC: HYPER 09:54 | DX: T87.81 Dehiscence of amputation stump (principal); E11.621 Type 2 diabetes mellitus with foot ulcer; I70.235 Atherosclerosis of native arteries of right leg with ulceration of other part of foot; L97.512 Non-pressure chronic ulcer of other part of right foot with fat layer exposed; E11.51 Type 2 diabetes mellitus with diabetic peripheral angiopathy without gangrene; E11.22 Type 2 diabetes mellitus with diabetic chronic kidney disease; I13.0 Hypertensive heart and chronic kidney disease with heart failure and stage 1 through stage 4 chronic kidney disease, or unspecified chronic kidney disease; N18.9 Chronic kidney disease, unspecified; I50.9 Heart failure, unspecified; E78.5 Hyperlipidemia, unspecified; E78.00 Pure hypercholesterolemia, unspecified; I25.10 Atherosclerotic heart disease of native coronary artery without angina pectoris; I25.5 Ischemic cardiomyopathy; I25.2 Old myocardial infarction; K21.9 Gastro-esophageal reflux disease without esophagitis; M10.9 Gout, unspecified; M19.90 Unspecified osteoarthritis, unspecified site; Z95.1 Presence of aortocoronary bypass graft; Z95.818 Presence of other cardiac implants and grafts; Z85.46 Personal history of malignant neoplasm of prostate; Z86.718 Personal history of other venous thrombosis and embolism; Y83.5 Amputation of limb(s) as the cause of abnormal reaction of the patient, or of later complication, without mention of misadventure at the time of the procedure ==

== ENCOUNTER → 2020-02-17 | Outpatient (CLI) | payer OTHER | LOC: HYPER 11:48 | DX: T87.81 Dehiscence of amputation stump (principal); E11.621 Type 2 diabetes mellitus with foot ulcer; L97.512 Non-pressure chronic ulcer of other part of right foot with fat layer exposed; E11.22 Type 2 diabetes mellitus with diabetic chronic kidney disease; I13.0 Hypertensive heart and chronic kidney disease with heart failure and stage 1 through stage 4 chronic kidney disease, or unspecified chronic kidney disease; I50.9 Heart failure, unspecified; N18.9 Chronic kidney disease, unspecified; E78.00 Pure hypercholesterolemia, unspecified; E78.5 Hyperlipidemia, unspecified; I25.10 Atherosclerotic heart disease of native coronary artery without angina pectoris; I25.5 Ischemic cardiomyopathy; I25.2 Old myocardial infarction; K21.9 Gastro-esophageal reflux disease without esophagitis; M19.90 Unspecified osteoarthritis, unspecified site; M10.9 Gout, unspecified; Z95.818 Presence of other cardiac implants and grafts; Z85.46 Personal history of malignant neoplasm of prostate; Z86.718 Personal history of other venous thrombosis and embolism; Z95.1 Presence of aortocoronary bypass graft; Y83.5 Amputation of limb(s) as the cause of abnormal reaction of the patient, or of later complication, without mention of misadventure at the time of the procedure ==

== ENCOUNTER → 2020-03-02 | Outpatient (CLI) | payer OTHER | LOC: HYPER 13:57 | DX: T87.81 Dehiscence of amputation stump (principal); E11.621 Type 2 diabetes mellitus with foot ulcer; L97.512 Non-pressure chronic ulcer of other part of right foot with fat layer exposed; L84 Corns and callosities; E11.51 Type 2 diabetes mellitus with diabetic peripheral angiopathy without gangrene; E11.22 Type 2 diabetes mellitus with diabetic chronic kidney disease; I13.0 Hypertensive heart and chronic kidney disease with heart failure and stage 1 through stage 4 chronic kidney disease, or unspecified chronic kidney disease; N18.9 Chronic kidney disease, unspecified; I50.9 Heart failure, unspecified; E78.00 Pure hypercholesterolemia, unspecified; E78.5 Hyperlipidemia, unspecified; I25.10 Atherosclerotic heart disease of native coronary artery without angina pectoris; I25.5 Ischemic cardiomyopathy; I25.2 Old myocardial infarction; K21.9 Gastro-esophageal reflux disease without esophagitis; M19.90 Unspecified osteoarthritis, unspecified site; M10.9 Gout, unspecified; Z95.1 Presence of aortocoronary bypass graft; Z95.818 Presence of other cardiac implants and grafts; Z85.46 Personal history of malignant neoplasm of prostate; Z86.718 Personal history of other venous thrombosis and embolism; Y83.5 Amputation of limb(s) as the cause of abnormal reaction of the patient, or of later complication, without mention of misadventure at the time of the procedure ==

== ENCOUNTER → 2020-03-16 | Outpatient (CLI) | payer OTHER | LOC: HYPER 13:34 | PROVIDERS: ATTEND Emergency Medicine | DX: T87.81 Dehiscence of amputation stump (principal); E11.621 Type 2 diabetes mellitus with foot ulcer; L97.512 Non-pressure chronic ulcer of other part of right foot with fat layer exposed; E11.51 Type 2 diabetes mellitus with diabetic peripheral angiopathy without gangrene; I25.10 Atherosclerotic heart disease of native coronary artery without angina pectoris; E78.00 Pure hypercholesterolemia, unspecified; E11.22 Type 2 diabetes mellitus with diabetic chronic kidney disease; M19.90 Unspecified osteoarthritis, unspecified site; I13.0 Hypertensive heart and chronic kidney disease with heart failure and stage 1 through stage 4 chronic kidney disease, or unspecified chronic kidney disease; I50.9 Heart failure, unspecified; N18.9 Chronic kidney disease, unspecified; E78.5 Hyperlipidemia, unspecified; I25.2 Old myocardial infarction; M10.9 Gout, unspecified; Z85.46 Personal history of malignant neoplasm of prostate; Z86.718 Personal history of other venous thrombosis and embolism; Z95.1 Presence of aortocoronary bypass graft; Z79.82 Long term (current) use of aspirin; Z79.4 Long term (current) use of insulin; Y83.5 Amputation of limb(s) as the cause of abnormal reaction of the patient, or of later complication, without mention of misadventure at the time of the procedure ==

== ENCOUNTER → 2020-03-30 | Outpatient (CLI) | payer OTHER | LOC: HYPER 10:03 | PROVIDERS: ATTEND Emergency Medicine Emergency Medical Services | DX: T87.81 Dehiscence of amputation stump (principal); E11.621 Type 2 diabetes mellitus with foot ulcer; L97.512 Non-pressure chronic ulcer of other part of right foot with fat layer exposed; L84 Corns and callosities; E11.51 Type 2 diabetes mellitus with diabetic peripheral angiopathy without gangrene; E11.22 Type 2 diabetes mellitus with diabetic chronic kidney disease; I13.0 Hypertensive heart and chronic kidney disease with heart failure and stage 1 through stage 4 chronic kidney disease, or unspecified chronic kidney disease; N18.9 Chronic kidney disease, unspecified; I50.9 Heart failure, unspecified; E78.00 Pure hypercholesterolemia, unspecified; E78.5 Hyperlipidemia, unspecified; I25.5 Ischemic cardiomyopathy; I25.10 Atherosclerotic heart disease of native coronary artery without angina pectoris; I25.2 Old myocardial infarction; K21.9 Gastro-esophageal reflux disease without esophagitis; M19.90 Unspecified osteoarthritis, unspecified site; M10.9 Gout, unspecified; Z95.1 Presence of aortocoronary bypass graft; Z95.818 Presence of other cardiac implants and grafts; Z85.46 Personal history of malignant neoplasm of prostate; Z86.718 Personal history of other venous thrombosis and embolism; Y83.5 Amputation of limb(s) as the cause of abnormal reaction of the patient, or of later complication, without mention of misadventure at the time of the procedure ==

== ENCOUNTER → 2020-04-13 | Outpatient (CLI) | payer OTHER | LOC: HYPER 08:07 | PROVIDERS: ATTEND Emergency Medicine | DX: T87.81 Dehiscence of amputation stump (principal); E11.621 Type 2 diabetes mellitus with foot ulcer; L97.512 Non-pressure chronic ulcer of other part of right foot with fat layer exposed; E11.51 Type 2 diabetes mellitus with diabetic peripheral angiopathy without gangrene; I25.10 Atherosclerotic heart disease of native coronary artery without angina pectoris; E78.00 Pure hypercholesterolemia, unspecified; M19.90 Unspecified osteoarthritis, unspecified site; E11.22 Type 2 diabetes mellitus with diabetic chronic kidney disease; I13.0 Hypertensive heart and chronic kidney disease with heart failure and stage 1 through stage 4 chronic kidney disease, or unspecified chronic kidney disease; I50.9 Heart failure, unspecified; N18.9 Chronic kidney disease, unspecified; E78.5 Hyperlipidemia, unspecified; I25.2 Old myocardial infarction; M10.9 Gout, unspecified; Z86.718 Personal history of other venous thrombosis and embolism; Z85.46 Personal history of malignant neoplasm of prostate; Z95.1 Presence of aortocoronary bypass graft; Z79.4 Long term (current) use of insulin; Z79.82 Long term (current) use of aspirin; Y83.5 Amputation of limb(s) as the cause of abnormal reaction of the patient, or of later complication, without mention of misadventure at the time of the procedure ==

== ENCOUNTER → 2020-04-13 | Outpatient (CLI) | payer OTHER | LOC: SJCVCIMAG 08:43 | PROVIDERS: ATTEND Nuclear Medicine Nuclear Cardiology | DX: I70.203 Unspecified atherosclerosis of native arteries of extremities, bilateral legs (principal) ==

== ENCOUNTER → 2020-04-20 | Outpatient (CLI) | payer OTHER | LOC: SJCVC 09:43 | PROVIDERS: ATTEND Nuclear Medicine Nuclear Cardiology | DX: I73.9 Peripheral vascular disease, unspecified (principal); E78.00 Pure hypercholesterolemia, unspecified; I25.10 Atherosclerotic heart disease of native coronary artery without angina pectoris; E11.22 Type 2 diabetes mellitus with diabetic chronic kidney disease; I12.9 Hypertensive chronic kidney disease with stage 1 through stage 4 chronic kidney disease, or unspecified chronic kidney disease; N18.9 Chronic kidney disease, unspecified; Z95.1 Presence of aortocoronary bypass graft; Z79.899 Other long term (current) drug therapy ==

== ENCOUNTER → 2020-04-27 | Outpatient (CLI) | payer OTHER | LOC: HYPER 08:25 | PROVIDERS: ATTEND Emergency Medicine | DX: T87.81 Dehiscence of amputation stump (principal); E11.621 Type 2 diabetes mellitus with foot ulcer; L97.512 Non-pressure chronic ulcer of other part of right foot with fat layer exposed; L84 Corns and callosities; E11.51 Type 2 diabetes mellitus with diabetic peripheral angiopathy without gangrene; E11.22 Type 2 diabetes mellitus with diabetic chronic kidney disease; N18.9 Chronic kidney disease, unspecified; E78.00 Pure hypercholesterolemia, unspecified; E78.5 Hyperlipidemia, unspecified; I25.10 Atherosclerotic heart disease of native coronary artery without angina pectoris; I25.5 Ischemic cardiomyopathy; I11.0 Hypertensive heart disease with heart failure; I50.9 Heart failure, unspecified; I25.2 Old myocardial infarction; M19.90 Unspecified osteoarthritis, unspecified site; M10.9 Gout, unspecified; K21.9 Gastro-esophageal reflux disease without esophagitis; Z95.1 Presence of aortocoronary bypass graft; Z86.718 Personal history of other venous thrombosis and embolism; Z95.818 Presence of other cardiac implants and grafts; Z85.46 Personal history of malignant neoplasm of prostate; Y83.5 Amputation of limb(s) as the cause of abnormal reaction of the patient, or of later complication, without mention of misadventure at the time of the procedure ==

== ENCOUNTER → 2020-06-23 | Outpatient (CLI) | payer OTHER | LOC: SJCVC 09:53 | PROVIDERS: ATTEND Internal Medicine Cardiovascular Disease | DX: R94.31 Abnormal electrocardiogram [ECG] [EKG] (principal); I25.810 Atherosclerosis of coronary artery bypass graft(s) without angina pectoris; E78.00 Pure hypercholesterolemia, unspecified; I12.9 Hypertensive chronic kidney disease with stage 1 through stage 4 chronic kidney disease, or unspecified chronic kidney disease; E11.22 Type 2 diabetes mellitus with diabetic chronic kidney disease; N18.9 Chronic kidney disease, unspecified; I73.9 Peripheral vascular disease, unspecified; I25.5 Ischemic cardiomyopathy; Z79.899 Other long term (current) drug therapy ==

== ENCOUNTER → 2020-10-24 | Outpatient (CLI) | payer OTHER | LOC: SJCVCIMAG 07:22 | PROVIDERS: ATTEND Nuclear Medicine Nuclear Cardiology | DX: I70.293 Other atherosclerosis of native arteries of extremities, bilateral legs (principal); R00.1 Bradycardia, unspecified; I13.10 Hypertensive heart and chronic kidney disease without heart failure, with stage 1 through stage 4 chronic kidney disease, or unspecified chronic kidney disease; E11.22 Type 2 diabetes mellitus with diabetic chronic kidney disease; N18.9 Chronic kidney disease, unspecified; R94.31 Abnormal electrocardiogram [ECG] [EKG]; I25.5 Ischemic cardiomyopathy; E78.00 Pure hypercholesterolemia, unspecified; I25.810 Atherosclerosis of coronary artery bypass graft(s) without angina pectoris; I77.9 Disorder of arteries and arterioles, unspecified; M19.90 Unspecified osteoarthritis, unspecified site; Z79.4 Long term (current) use of insulin; Z79.82 Long term (current) use of aspirin; Z79.899 Other long term (current) drug therapy; Z82.49 Family history of ischemic heart disease and other diseases of the circulatory system; Z95.820 Peripheral vascular angioplasty status with implants and grafts; Z95.1 Presence of aortocoronary bypass graft; Z90.5 Acquired absence of kidney ==

== ENCOUNTER 2021-01-16 14:49 | Inpatient (IN) | payer OTHER ==
[~2021-01-16] VITALS: Ht 172.7 cm; Wt 78.0 kg
[2021-01-16 15:34] VITALS: BP 168/72
[2021-01-16 16:23] LABS: ABSOLUTE NEUTROPHILS 7.6 thou/uL (1.4-8.2); BASOPHILS 0.4 % (0.0-2.0); EOSINOPHILS 0.5 % (0.0-3.0); HEMATOCRIT 31.6 % (42.0-52.0); HEMOGLOBIN 10.6 gm/dL (14.0-18.0); LYMPHOCYTES 8.7 % (24.0-44.0); MCH 32.8 pg (26.0-34.0); MCHC 33.6 g/dL (28.0-37.0); MCV 97.4 fL (80.0-100.0); MONOCYTES 9.5 % (1.0-8.0); PLATELET COUNT 194 thou/uL (150-400); POLYS 80.9 % (36.0-66.0); RBC 3.24 mil/uL (4.50-6.00); RDW 12.6 % (10.5-14.5); WBC 9.4 thou/uL (4.0-11.0)
[2021-01-16 16:32] LABS: ANION GAP 8 mmol/L (7-16); BUN 49 mg/dL (7-18); CALCIUM 9.1 mg/dL (8.5-10.1); CHLORIDE 104 mmol/L (98-107); CO2 28 mmol/L (21-32); CREATININE 2.3 mg/dL (0.7-1.3); GLUCOSE 221 mg/dL (74-106); POTASSIUM 4.7 mmol/L (3.5-5.1); SODIUM 140 mmol/L (136-145)
[2021-01-16 16:40] LABS: APTT 25.1 Seconds (24.5-32.8); INR 1.01
[2021-01-16 16:41] LABS: ALBUMIN 2.6 g/dL (3.4-5.0); SGOT 21 U/L (15-37); SGPT 13 U/L (16-63); TOTAL BILIRUBIN 0.3 mg/dL (0.2-1.0); TROPONIN-I <0.06 ng/mL (<0.06)
[2021-01-16 16:58] LABS: URINE BILIRUBIN NEGATIVE (Negative); URINE BLOOD 2+ (Negative); URINE CLARITY CLEAR; URINE COLOR YELLOW; URINE GLUCOSE-RANDOM* TRACE (Negative); URINE KETONES NEGATIVE (Negative); URINE LEUKOCYTES-REFLEX NEGATIVE (Negative); URINE NITRITE-REFLEX NEGATIVE (Negative); URINE PROTEIN (DIPSTICK) 3+ (Negative); URINE SPECIFIC GRAVITY >= 1.030 (1.005-1.035); URINE UROBILINOGEN 0.2 E.U./dl (0.2-1.0)
[2021-01-16 17:14] LABS: BACTERIA-REFLEX 1-9 Few /HPF (None Seen); SQUAMOUS 0-3 Few /LPF (0-3); URINE RBC 3-10 Few /HPF (0-2); URINE WBC-REFLEX 0-5 Rare /HPF (0-5)
[2021-01-16 17:15] LABS: COARSE GRANULAR CASTS 0-3 Few /LPF (None Seen); CRYSTALS None Seen /LPF (None Seen); HYALINE CASTS 0-3 Few /LPF (None Seen)
--- NOTE | 2021-01-16 21:50 | NUR ---
DC ENHANCED ISOLATION PER .
--- NOTE | 2021-01-17 00:19 | NUR ---
Updated daughter Lorraine regarding pt's status with pt's permission
[2021-01-17 00:41] VITALS: BP 160/61
[2021-01-17 00:51] VITALS: BP 128/58
[2021-01-17 01:18] VITALS: BP 167/71
--- NOTE | 2021-01-17 05:08 | NUR ---
PT WAA ADMITTED TO THE UNIT FROM THE ER IN A STABLE CONDITION.PT DENIED PAIN SINCE ADMIT.EDUCATION,HX AND ASSESSMENT COMPLETED.PT CONT ON IVF AND IV ABX ORDERED.L GREAT TOE WOUND NOTED,DRY AND BLACK.PT AFEBRILE ON ADMIT.LAST BM ON 01/15.PER REPORT,PT GOT HIS TWO COVID VACCINE ALREADY.PT RESTING ON HIS BED AT THIS TIME.CALL LIGHT WITHIN REACH.
[2021-01-17 05:56] LABS: HEMATOCRIT 29.4 % (42.0-52.0); HEMOGLOBIN 9.7 gm/dL (14.0-18.0); MCH 32.2 pg (26.0-34.0); MCHC 32.9 g/dL (28.0-37.0); MCV 97.8 fL (80.0-100.0); RBC 3.01 mil/uL (4.50-6.00); RDW 12.6 % (10.5-14.5); WBC 7.8 thou/uL (4.0-11.0)
[2021-01-17 06:06] LABS: CALCIUM 8.3 mg/dL (8.5-10.1); CREATININE 1.9 mg/dL (0.7-1.3); POTASSIUM 4.3 mmol/L (3.5-5.1)
[2021-01-17 08:05] VITALS: BP 143/75
--- NOTE | 2021-01-17 09:12 | NUR ---
ASSESSMENT: CM REVIEWED CHART AND SPOKE WITH PATIENT. PT IS ALERT AND ORIENTED X4. PT IS ADMITTED DUE TO SEPSIS. PT HAS PAST HX OF RIGHT GREAT TOE AMPUTATION. PT WAS ADMITTED DUE TO COMPLAINING OF TOE PAIN, SOB, DIZZINESS. PT IS CURRENTLY ON IV ANBX AND WOUND CARE AND PODIATRY HAVE BEEN CONSULTED. PT REPORTS LIVING IN A HOUSE WITH HIS . PT REPORTS A COUPLE OF STEPS WITH HANDRAIL TO ENTER AND NO STEPS ONCE INSIDE. PT REPORTS HE THINKS HE STILL HAS A WALKER AT HOME IF NEEDED BUT REPORTS HE IS NORMALLY INDEPENDENT WITH ADLS AND AMBULATION. PT HAS HAD [facility] IN THE PAST STATES IF HE NEEDS HH AGAIN HE IS AGREEABLE TO USE THEM. CM WILL CONTINUE TO FOLLOW TO ASSIST NEEDED.
[2021-01-17 15:25] VITALS: BP 166/73
--- NOTE | 2021-01-17 16:50 | EKG ---
[place] [address] [facility] [place] [address] ELECTROCARDIOGRAM REPORT Name: SIRENA SNYDER Room #: 438-P ADM IN M.R.#: [id number] Admission: 01/16/21 Attend Phys: Edis Lux MD Discharge: Date of : 49 Report #: [id number] [facility] ED Test Date: 2021-01-16 Test Time: 15:07:42 Pat Name: SIRENA SNYDER Department: Room: [facility] Gender: M Excellence Manager: [place] : 1945 Requested By: Brigido Blank Order Number: [id number] MD: Reynaldo Messer Measurements Intervals [place] Rate: 74 P: AR: QRS: 55 QRSD: 86 T: 100 QT: 515 QTc: 572 Interpretive Statements Sinus rhythm LVH w/ repol abnormalities, possible ischemia Compared to ECG 01/23/2020 17:40:40 Early R wave progression no longer present Electronically Signed On 01-17-2021 16:50:30 CDT by Reynaldo Messer [email or web address] <ELECTRONICALLY SIGNED> By: Reynaldo Messer MD, [facility] 01/17/210 1507 1507 Reynaldo Messer MD, [facility] /EPI
--- NOTE | 2021-01-17 17:40 | EKG ---
[address] [place] [place] [address] ELECTROCARDIOGRAM REPORT Name: SIRENA SNYDER Room #: 438- ADM IN M.R.#: [id number] Admission: 01/16/21 Attend Phys: Edis Lux MD Discharge: Date of : 49 Report #: [id number] [facility] Test Date: 2021-01-17 Test Time: 16:38:31 Pat Name: SIRENA SNYDER Department: Room: 438 P Gender: M Software Verification Engineer: FSCHWALTONI : 1945 Requested By: Miriam Miller Order Number: [id number] MD: Reynaldo Messer Measurements Intervals [place] Rate: 71 P: 45 NV: 133 QRS: 49 QRSD: 93 T: 69 QT: 403 QTc: 438 Interpretive Statements Sinus rhythm Nonspecific ST segment abnormality Compared to ECG 01/16/2021 15:07:42 No significant changes found Electronically Signed On 01-17-2021 17:40:43 CDT by Reynaldo Messer [email or web address] <ELECTRONICALLY SIGNED> By: Reynaldo Messer MD, [facility] 01/17/21 1740 [id number] [id number] Reynaldo Messer MD, [facility] /EPI
[2021-01-17 19:00] VITALS: BP 174/66
--- NOTE | 2021-01-17 19:50 | NUR ---
Assumed pt care at 7am.Pt in and out of bed with sba.Assessment completed.vss. Pt in bed for all meals. Good appetite noted.Tate Cooper and wound care here.order noted.Meds given as ordered and well tolerated.Drsg applied to left great toe.Report off to xochitl rn.
[2021-01-18 04:09] VITALS: BP 153/67
--- NOTE | 2021-01-18 05:14 | NUR ---
pt had no issues thru noc. no c/o pain or discomfort.wound to left great toe open to air no drainage noted no odor no s/s of redness or infection. wound bed c/d.
[2021-01-18 07:25] VITALS: BP 147/70
--- NOTE | 2021-01-18 13:05 | NUR ---
on-going assessment: CM REVIEWED CHART AND SPOKE WITH PATIENT. PT REMAINS ON IV ANBX AND ID IS FOLLOWING. CM DISCUSSED POSSIBLE NEED FOR HH AT DISCHARGE. PT HAS USED [facility] IN THE PAST. PT STATES HE WOULD LIKE TO USE THEM AGAIN BUT CM SPOKE WITH [facility] WHO REPORTS THEY CANNOT ACCEPT [employer] AT THIS TIME. PT AGREEABLE WITH ANY OTHER REFERRAL FOR HH. CM [facility]ED REFERRAL TO [facility] WHO REPORTS THEY CAN LIKELY ACCEPT BUT REVIEWING FURTHER THEIR NURSING SCHEDULE AND WILL GET BACK TO CM.
[2021-01-18 16:15] VITALS: BP 168/72
--- NOTE | 2021-01-18 18:30 | NUR ---
PT ASSESSED AT START OF SHIFT. BLOOD SUGAR LOW THIS AM AND TREATED W/ APPLE JUICE. REMAINDER OF DAY PT RUNNING IN THE 200'S. WENT FOR LUMBAR MRI PER ORDERS. NO C/O PAIN. NAPPED SOME IN THE AFTERNOON. IV ANTIBIOTICS. WOUND CARE TEAM IN THIS AFTERNOON TO SEE PT.
[2021-01-18 20:39] VITALS: BP 158/78
[2021-01-19 02:13] VITALS: BP 178/85
--- NOTE | 2021-01-19 06:02 | NUR ---
I CONCUR WITH THE CHARTING BY ELROY TIPTON LPN
--- NOTE | 2021-01-19 06:18 | NUR ---
PT HAD UNCOMFORTABLE NOC. C/O LOOSE STOOL TIMES ONE. STOOL NOTED LOOSE, NO ODOR NOTED. NO C/O ABDOMINAL PAIN. C/O NIGHT SWEATS VITALS TAKEN AND ACCUCHECK DONE VITALS 168/87,64,19,98, 99%RA. BLOOD SUGAR 135. ROOM NOTED TO BE WARM TEMP AT 79' AND 3LAYERS OF BLANKETS ON PT. EDUCATED ON ROOM TEMP AND COVERING. AND WILL MONITOR. NO FURTHUR C/O SWEATING OR ISSUES THRU NOC. ALERT AND ORIENTATED X4. UP AD LID WITH CAUTION FALL RISK. BED ALRM IN PLACE. REEDUCATED PT ON CALLING PREVENTS FALLING.
[2021-01-19 07:33] VITALS: BP 156/79
--- NOTE | 2021-01-19 12:06 | NUR ---
ASSUMED PT CARE AROUND 0715. PT ALERT X ORIENTED X4. ON ROOM AIR.IV RT FA/NS/75MLS/HR.C/O DIARRHEA SINCE LAST NIGHT. HAD BM TODAY . AMBULATES HIMSELF, BUT HIGH FALL RISK, EDUCATED ON THE RISK AND FALL PRECAUTION IN PLACE.USES URINALS AT BEDSIDE. AROUND 0945, PT TAKEN TO CATHLAB FOR LOWER EXTREMITY RUNOFF WITH POSSIBLE INTERVENTIONS. MORNING MEDS GIVEN. WILL CONTINUE TO MONITOR.
--- NOTE | 2021-01-19 15:40 | NUR ---
HANDOFF PT TO NEDRA RN AFTER PT TRANSPORTED TO 438. RT GROIN DRESSING CLEAN DRY INTACT. NO HEMATOMA. 3 HOUR BEDREST COMPLETE. ONE LITER NS INFUSED. VSS.
[2021-01-19 16:11] LABS: CALCIUM 8.1 mg/dL (8.5-10.1); CREATININE 1.5 mg/dL (0.7-1.3); POTASSIUM 4.5 mmol/L (3.5-5.1)
[2021-01-19 16:33] VITALS: BP 145/76
[2021-01-19 20:40] VITALS: BP 146/73
--- NOTE | 2021-01-20 04:16 | NUR ---
PT WAS OBSERVED LYING ON HIS BED WITH HIS EYES CLOSED AT START OF SHIFT.PT DENIED PAIN,N/V SO FAR.PT UP WITH SBA TO USE HIS URINAL.PT CONT ON IVF AND IV ABX ORDERED.BETADINE TO HIS L GREAT TOE WOUND.PT REF INSULIN AT HS.NO DIARRHEA/BM NOTED THIS SHIFT.R GROIN DRSG DRY AND INTACT.CALL LIGHT WITHIN REACH.
[2021-01-20 04:51] VITALS: BP 167/79
[2021-01-20 05:25] LABS: HEMATOCRIT 31.8 % (42.0-52.0); HEMOGLOBIN 10.4 gm/dL (14.0-18.0); MCH 32.3 pg (26.0-34.0); MCHC 32.7 g/dL (28.0-37.0); MCV 98.7 fL (80.0-100.0); RBC 3.22 mil/uL (4.50-6.00); RDW 12.6 % (10.5-14.5); WBC 8.2 thou/uL (4.0-11.0)
[2021-01-20 05:30] LABS: CALCIUM 8.4 mg/dL (8.5-10.1); CREATININE 1.6 mg/dL (0.7-1.3); MAGNESIUM 1.8 mg/dL (1.8-2.4); POTASSIUM 4.1 mmol/L (3.5-5.1)
[2021-01-20 07:55] VITALS: BP 152/76
--- NOTE | 2021-01-20 13:11 | NUR ---
ASSUMED PT CARE AROUND 0715. PT ALERT X ORIENTED X 4. ON ROOM AIR. IV RT FA/NS/75MLS/HR. PHYSICAL AND OCCUPATIONAL THERAPY WORKED WITH THE PATIENT. PATIENT SITTING IN THE CHAIR. HAD 2 BM TODAY. ACCVONDA JOHNSON. EATING AND DRINKING WELL. USES URINALS AT BEDSIDE. FALL PRECAUTION IN PLACE. CALL LIGHT IN REACH. WILL CALL APPROPRIATELY. WILL CONTINUE TO MONITOR.
[2021-01-20 16:30] VITALS: BP 158/70
[2021-01-20 19:25] VITALS: BP 172/78
[2021-01-21 00:35] VITALS: BP 148/74
--- NOTE | 2021-01-21 02:26 | NUR ---
ASSUMED CARE OF PT AT 1900. PT IS A/O X4 AND IS UP WITH SBA. ROOM AIR. BP ELEVATED. SCHEDULED BP MEDICATION GIVEN DIRECTED. PT C/O CHEST PAIN. CIVIL ENGINEERING PROFESSIONAL NOTIFIED. ORDERS GIVEN. EKG TAKEN AND PLACED IN CHART. GI COCKTAIL GIVEN. PT STATES RELIEF. C/O PAIN TO LEFT GREAT TOE AND SECOND TOE. WOUND CARE COMPLETED AND LEFT OPEN TO AIR. PAIN MEDICATION GIVEN DIRECTED. USES A URINAL AT THE BEDSIDE. NO BM THIS NOC. REFUSED NOC INSULIN STATING HE FEELS HIS SUGAR DROPS IN THE NIGHT AND WAKES WITH NOC SWEATS AND WOULD PREFER NOT TO TAKE IT. HS BS WNL. PROVIDED HS SNACK AT BEDTIME. RECHECKED BP AND IT HAD LOWERED SINCE START OF SHIFT. AT THIS TIME PT IS LYING IN HIS BED WITH EYES CLOSED APPEARING TO BE SLEEPING. FALL PRECAUTIONS IMPLEMENTED, CALL LIGHT IS WITHIN REACH. CALLS OUT APPROPRIATELY. WILL CONTINUE TO MONITOR.
[2021-01-21 04:00] VITALS: BP 149/67
[2021-01-21 04:52] LABS: HEMATOCRIT 26.2 % (42.0-52.0); HEMOGLOBIN 8.6 gm/dL (14.0-18.0); MCHC 32.8 g/dL (28.0-37.0); MCV 97.8 fL (80.0-100.0); RBC 2.68 mil/uL (4.50-6.00); RDW 12.6 % (10.5-14.5); WBC 6.7 thou/uL (4.0-11.0)
[2021-01-21 05:10] LABS: CALCIUM 8.1 mg/dL (8.5-10.1); CREATININE 1.6 mg/dL (0.7-1.3); MAGNESIUM 1.8 mg/dL (1.8-2.4); POTASSIUM 4.2 mmol/L (3.5-5.1)
[2021-01-21 07:35] VITALS: BP 162/78
--- NOTE | 2021-01-21 09:59 | EKG ---
[address] [place] [address] ELECTROCARDIOGRAM REPORT Name: SIRENA SNYDER Room #: 438-P ADM IN M.R.#: [id number] Admission: 01/16/21 Attend Phys: Philippe Morrissey MD Discharge: Date of : 49 Report #: [id number] [facility] Test Date: 2021-01-20 Test Time: 20:11:28 Pat Name: SIRENA SNYDER Department: Room: 438 P Gender: M Photocopying Equipment Mechanic: UNKNOWN : 1945 Requested By: Ana Tsai Order Number: [id number] MD: Reynaldo Messer Measurements Intervals [place] Rate: 64 P: 58 AK: 138 QRS: 43 QRSD: 91 T: 69 QT: 426 QTc: 440 Interpretive Statements Sinus rhythm Nonspecific ST segment abnormality Compared to ECG 01/17/2021 16:38:31 No significant change was found Electronically Signed On 01-21-2021 9:58:57 CDT by Reynaldo Messer [email or web address] <ELECTRONICALLY SIGNED> By: Reynaldo Messer MD, [facility] 01/21/21 0958 10 10 Reynaldo Messer MD, [facility] /EPI
--- NOTE | 2021-01-21 12:26 | NUR ---
ASSUMED PT CARE AROUND 0700. PT ALERT X ORIENTED X4. ON ROOM AIR. USES URINALS AT BEDSIDE. STAND BY ASST. ACCU CHECK AND ACHS. IV RT UA/NS/75MLS/HR. WOUND CARE DONE WITH NS AND BETADIENE, LF TOE LOOKS BLAKISH. HAD A BM TODAY. FALL PRECAUTION IN PLACE. CALL LIOGHT IN REACH. WILL CALL APPROP. WILL CONT TO MONITOR.
[2021-01-21 16:15] VITALS: BP 173/73
[2021-01-21 19:10] VITALS: BP 171/77
--- NOTE | 2021-01-22 03:45 | NUR ---
ASSUMED PT CARE AT 1900.PT WAS OBSERVED LYING ON HIS BED WATCHING TV PT PROGRESSING TOWARDS DC GOALS.AT SHIFT CHANGE.PT DENIED PAIN/N/V SO FAR. NO BM NOTED.URINAL AT BEDSIDE.PT CONT ON IVF.BETADINE TO HIS L GREAT TOE.PT PROGRESSING TOWARDS DC GOALS.CALL LIGHT WITHIN REACH.
[2021-01-22 04:40] VITALS: BP 185/95
[2021-01-22 05:44] LABS: HEMATOCRIT 29.3 % (42.0-52.0); HEMOGLOBIN 9.6 gm/dL (14.0-18.0); MCH 32.4 pg (26.0-34.0); MCHC 32.9 g/dL (28.0-37.0); MCV 98.3 fL (80.0-100.0); RBC 2.98 mil/uL (4.50-6.00); RDW 12.7 % (10.5-14.5); WBC 8.1 thou/uL (4.0-11.0)
[2021-01-22 05:57] LABS: CALCIUM 8.4 mg/dL (8.5-10.1); CREATININE 1.6 mg/dL (0.7-1.3); MAGNESIUM 1.9 mg/dL (1.8-2.4); POTASSIUM 4.7 mmol/L (3.5-5.1)
[2021-01-22 07:55] VITALS: BP 173/82
[2021-01-22 11:39] VITALS: BP 173/82
--- NOTE | 2021-01-22 11:46 | NUR ---
Received awake on bed. Due medications given as prescribed, able to swallow meds w/o difficulty. On room air. Vital signs stable. On MS, not on telemetry; no complains and signs of chest pain, crushing sensation and heaviness. Assisted in ADLs. On carb controlled diet- tolerating well; no nausea, no vomiting and no abdominal pain noted. On blood sugar monitoring, taken and recorded accordingly. With BP elevation this AM- PRN PO BP medication given as prescribed; rechecked BP afterwards 158/72. Continent of bowel and bladder, able to use the urinal and assisted to go to the toilet with standby assist; output measured and recorded; night RN reported patient can have occassional incontinence. With L great toe wound- paint with betadine and air to dry. No complains of pain made during assessment. Pt seen and examined by physical therapist this AM, able to walk in the hallway and do stairs- tolerated session well. Possible discharge today- a/w Dr Morrissey's rounds and to complete instructions. To continue monitoring patient.
[2021-01-22] MEDS ORDERED: AUGMENTIN 500-1 EACH PO (12:59)
[2021-01-22] MEDS ORDERED: PEPCID20 MG PO (12:59)
[2021-01-22] MEDS ORDERED: METOPROLOL SUCC50 MG PO (12:59)
[2021-01-22] MEDS ORDERED: AMLODIPINE BESY10 MG PO (12:59)
[2021-01-22] MEDS ORDERED: CARAFATE 1 GM TA1 G1 PO (12:59)
[2021-01-22] MEDS ORDERED: ACETAMINOPHEN325 M1 PO (12:59)
--- NOTE | 2021-01-22 13:56 | NUR ---
ON-GOING ASSESSMENT: CM REVIEWED CHART AND SPOKE WITH ATTENDING. PT WAS ABLE TO TRANSITION FROM IV ANBX TO PO. CM [facility]CTED [facility] WHO REPORTS THEY CAN ACCEPT HIM FOR HOME HEALTH SINCE HE IS NO LONGER ON IV ANBX. CM FAXED DISCHARGE PAPERWORK [facility] AND CONFIRMED THEY RECEIVED IT. PT IS ALSO NEEDING A WALKER FOR DISCHARGE. PT HAS NO PREFERENCE OF DME COMPANY. REFERRAL SENT TO [facility] BUT THEY DO NOT TAKE CIGNA. [facility] CAN ACCEPT PATIENT AND HAS DELIVERED A WALKER TO PATIENTS ROOM. CASE CLOSED.
== END 2021-01-22 14:27 | disposition home health service (06) | DRG 853 ==
LOC: ER 14:49 → EROBS 19:23 → 4S 19:23
PROVIDERS: Emergency Medicine; Nurse Practitioner Family; ADMIT Internal Medicine; ATTEND Internal Medicine
DX: A41.9 Sepsis, unspecified organism (principal); N17.0 Acute kidney failure with tubular necrosis; E44.0 Moderate protein-calorie malnutrition; L03.032 Cellulitis of left toe; I12.9 Hypertensive chronic kidney disease with stage 1 through stage 4 chronic kidney disease, or unspecified chronic kidney disease; E11.22 Type 2 diabetes mellitus with diabetic chronic kidney disease; I25.10 Atherosclerotic heart disease of native coronary artery without angina pectoris; E05.90 Thyrotoxicosis, unspecified without thyrotoxic crisis or storm; M48.061 Spinal stenosis, lumbar region without neurogenic claudication; E11.51 Type 2 diabetes mellitus with diabetic peripheral angiopathy without gangrene; E78.5 Hyperlipidemia, unspecified; I70.0 Atherosclerosis of aorta; M47.817 Spondylosis without myelopathy or radiculopathy, lumbosacral region; N18.9 Chronic kidney disease, unspecified; M19.90 Unspecified osteoarthritis, unspecified site; B35.3 Tinea pedis; I70.1 Atherosclerosis of renal artery; E11.621 Type 2 diabetes mellitus with foot ulcer; L97.529 Non-pressure chronic ulcer of other part of left foot with unspecified severity; I70.203 Unspecified atherosclerosis of native arteries of extremities, bilateral legs; R65.20 Severe sepsis without septic shock; Z20.822 Contact with and (suspected) exposure to COVID-19; Z95.5 Presence of coronary angioplasty implant and graft; Z95.1 Presence of aortocoronary bypass graft; Z85.46 Personal history of malignant neoplasm of prostate; Z79.4 Long term (current) use of insulin; Z79.82 Long term (current) use of aspirin; Z79.899 Other long term (current) drug therapy; Z88.5 Allergy status to narcotic agent; Z88.8 Allergy status to other drugs, medicaments and biological substances; Z89.411 Acquired absence of right great toe; Z68.26 Body mass index [BMI] 26.0-26.9, adult
CPT/HCPCS: 10102

== ENCOUNTER → 2021-01-25 | Outpatient (CLI) | payer OTHER ==
[~2021-01-25] MED LIST changes: +ACETAMINOPHEN325 M1 PO; +AMLODIPINE BESY10 MG PO; +AUGMENTIN 500-1 EACH PO; +CARAFATE 1 GM TA1 G1 PO; +PEPCID20 MG PO
== END ==
LOC: SJCVCIMAG 10:35
PROVIDERS: ATTEND Internal Medicine Cardiovascular Disease
DX: I49.1 Atrial premature depolarization (principal); I25.10 Atherosclerotic heart disease of native coronary artery without angina pectoris; I25.5 Ischemic cardiomyopathy; E78.00 Pure hypercholesterolemia, unspecified; I73.9 Peripheral vascular disease, unspecified; E11.51 Type 2 diabetes mellitus with diabetic peripheral angiopathy without gangrene; E11.22 Type 2 diabetes mellitus with diabetic chronic kidney disease; N18.9 Chronic kidney disease, unspecified; I13.10 Hypertensive heart and chronic kidney disease without heart failure, with stage 1 through stage 4 chronic kidney disease, or unspecified chronic kidney disease; I77.9 Disorder of arteries and arterioles, unspecified; M19.90 Unspecified osteoarthritis, unspecified site; Z95.1 Presence of aortocoronary bypass graft; Z88.5 Allergy status to narcotic agent; Z79.4 Long term (current) use of insulin; Z79.82 Long term (current) use of aspirin; Z79.899 Other long term (current) drug therapy; Z82.49 Family history of ischemic heart disease and other diseases of the circulatory system

== ENCOUNTER → 2021-02-16 | Outpatient (CLI) | payer OTHER | LOC: HYPER 07:40 | PROVIDERS: ATTEND Emergency Medicine | DX: T87.81 Dehiscence of amputation stump (principal); E11.621 Type 2 diabetes mellitus with foot ulcer; L97.522 Non-pressure chronic ulcer of other part of left foot with fat layer exposed; E11.51 Type 2 diabetes mellitus with diabetic peripheral angiopathy without gangrene; I25.10 Atherosclerotic heart disease of native coronary artery without angina pectoris; E11.22 Type 2 diabetes mellitus with diabetic chronic kidney disease; I13.0 Hypertensive heart and chronic kidney disease with heart failure and stage 1 through stage 4 chronic kidney disease, or unspecified chronic kidney disease; I50.9 Heart failure, unspecified; N18.9 Chronic kidney disease, unspecified; E78.00 Pure hypercholesterolemia, unspecified; M19.90 Unspecified osteoarthritis, unspecified site; E78.5 Hyperlipidemia, unspecified; I25.2 Old myocardial infarction; M10.9 Gout, unspecified; Z85.46 Personal history of malignant neoplasm of prostate; Z86.718 Personal history of other venous thrombosis and embolism; Z95.1 Presence of aortocoronary bypass graft; Z90.5 Acquired absence of kidney; Z79.4 Long term (current) use of insulin; Z79.82 Long term (current) use of aspirin; Z79.899 Other long term (current) drug therapy; Z89.411 Acquired absence of right great toe; Y83.5 Amputation of limb(s) as the cause of abnormal reaction of the patient, or of later complication, without mention of misadventure at the time of the procedure ==

== ENCOUNTER 2021-02-20 05:39 | Inpatient (IN) | payer OTHER, MEDICAID ==
[~2021-02-20] VITALS: Ht 175.3 cm; Wt 74.6 kg
--- NOTE | ~2021-02-20 | HC ---
[facility] [place] [address] CONSULTATION Name: SIRENA SNYDER Room #: 52-B ADM IN M.R.#: [id number] Admission: 02/20/21 Attend Phys: Morales Templeton DO Discharge: Date of : 49 Report #: [id number] THIS REPORT FOR: cc: Kevin Snider David J. DO Althoff, Jeffrey R. MD ~ DOC #: [id number] Perry Huang MD DATE OF SERVICE: 02/20/2021 CHIEF COMPLAINT: Left great toe amputation site. HISTORY OF PRESENT ILLNESS: This is a 75-year-old male patient with a history of peripheral vascular disease and a wound infection of the right great toe. He is status post amputation and has approximately 10 days ago. Denies any pain. He is admitted to the geriatric psych unit for agitation. I have been asked to see him with regard to continuing wound care. PAST MEDICAL HISTORY: Positive for peripheral arterial disease, status post angiogram and stent placement on the right side, arthritis, coronary artery disease, diabetes, hypertension, hyperlipidemia, ischemic cardiomyopathy, peripheral arterial disease. PAST SURGICAL HISTORY: Amputation of left great toe. ALLERGIES: Include ATORVASTATIN, CODEINE, AND TRAMADOL. MEDICATIONS: Include insulin, flaxseed, prasugrel, nitroglycerin, allopurinol, gabapentin, rosuvastatin, aspirin, methimazole, Bactrim, metoprolol, amlodipine, famotidine and sucralfate. SOCIAL HISTORY: The patient has been living in the home setting. No recent history of alcohol or tobacco use. FAMILY HISTORY: Noncontributory. REVIEW OF SYSTEMS: Somewhat limited as he has some level of dementia at present. All systems are reviewed as much as possible and are detailed in the history of present illness. PHYSICAL EXAMINATION: VITAL SIGNS: The patient's vital signs at this time include temperature 97.7, pulse 63, respirations 18, blood pressure 155/72. GENERAL: This is a somewhat chronically ill-appearing male. The patient appears to be in no distress. HEENT: Head is normocephalic. Nose and throat are clear. [facility] [address] [place] [address] CONSULTATION Name: SIRENA SNYDER Room #: 521B-B ADM IN M.R.#: [id number] Admission: 02/20/21 Attend Phys: Morales Templeton DO Discharge: Date of : 49 Report #: [id number] NECK: Supple. LUNGS: Clear. HEART: Regular. ABDOMEN: Soft. Bowel sounds present. EXTREMITIES: Lower extremities demonstrate surgical incision involving the right great toe, amputation site appears to be mostly intact. There is a little bit of duskiness on the dorsal surface, but the tissue still seems to be viable. It is not infected and is not . There is no drainage at this time. CLINICAL IMPRESSION: 1. Surgical incision site following amputation of the left great toe on 02/07/2021. 2. Peripheral arterial disease, status post angiogram and stent placement on the right side. 3. Type 2 diabetes mellitus. 4. Hypertension. 5. Hyperlipidemia. 6. Ischemic cardiomyopathy. 7. Coronary artery disease. 8. Generalized debility. 9. Moderate protein-calorie malnutrition with albumin of 2.6. RECOMMENDATIONS: At this point in time, we will recommend topical Betadine and dry gauze to the right great toe, postop shoe at all times. We will plan to remove sutures likely next week. Continue with medical management of his other underlying medical conditions and suggest aggressive nutritional support to maximize wound healing. I appreciate being asked to see the patient in consultation. MD MUMTAZ Brand/HENRI By: 6 57 Perry Huang MD /nt
[~2021-02-20 05:39] MED LIST changes: +BACTRIM DS TAB1 EACH PO
--- NOTE | 2021-02-20 06:11 | NUR ---
Pt admitted to [facility] unit @ 0545am via ER pt was brought to ED for confusion, work up for UTI done in ED, had a low blood glucose level at home, has a freestyle gokul to check his blood glucose. Pt is currently Alert/Oriented x 3, very pleasant and cooperative with staff, conversating with this nurse, VS 97.7, 155/72, 63, 18. Skin assessment completed, pt has an old scar midline chest, and three old scars on abdomen from previous surgeries. Pt is able to ambulate to bathroom, and has stress incontinence, requested a brief and states "when I gotta go I got to go and I can't hold it sometimes." Pt had an amputation done on 02/07/21 to his left great toe and has a previous amputation to his right great toe. Pt has a medical hx of HTN, DM 1, insulin dependent. Multiple surgeries, Pt currently denies SI/HI, visual or auditory halluncinations. Consents signed and pt oriented to unit by staff.
[2021-02-20 06:45] VITALS: BP 155/72
[2021-02-20 07:36] LABS: CHOLESTEROL 129 mg/dL (<200); HDL CHOLESTEROL 52 mg/dL (>40); LDL CHOLESTEROL 60 mg/dL (<100); TC:HDL 2.5 Ratio (Not establshd); TRIGLYCERIDE 85 mg/dL (<150); VLDL 17 mg/dL (<40)
[2021-02-20 09:46] VITALS: BP 151/74
--- NOTE | 2021-02-20 10:01 | NUR ---
0700 ASSUMED CARE OF PATIENT, PATIENT AWAKE IN ROOM AT THAT TIME. PATIENT AMB WITH STEADY GAIT. PATIENT NOT PRESENT IN AM GROUP. PATIENT IN ROOM FUND ACCOUNTANT TO ROOM TO ASSESS. MEDICATION TAKEN WHOLE WITHOUT DIFFICULTY. PATIENT STATES "I WILL NOT BE HERE ALL DAY, THIS IS A MISTAKE". PATIENT ALERT & ORIENTED X4. LS CLEAR, BS ACTIVE. SLIGHT PAIN TO L TOE DUE TO LEFT TOE AMPUTATION. PATIENTS GOAL FOR THE DAY IS TO GO HOME. PATIENTS CONCERN IS TO GET HOME. PATIENT STATES AGAIN "I DO NOT BELONG HERE, I AM NOT CRAZY". DENIES SI/HI, SLIGHT ANXIETY DUE TO ADMISSION ON THIS FLOOR WITH SLIHT DEPRESSION DUE TO ADMISSION. PATIENT THONG AND COOPERATIVE. WILL CONTINUE TO OBSERVE.
[2021-02-20 18:51] VITALS: BP 151/71
[2021-02-20 23:04] VITALS: BP 151/71
[2021-02-21 03:06] LABS: GLYCOHEMOGLOBIN (HGB A1C) 6.3 % (4.8-5.6)
--- NOTE | 2021-02-21 04:29 | NUR ---
Assumed care on 02/20/21 @ 19:15, in room seated in a chair near the window. As this RN walked into the room he became argumentitive and repeated NO, NO, No. over and over. When asked what he was saying NO to, he said OH, I thought you were going to give me some medicine. He repeatedly said that he wanted a phone to call the police and straighten them out. FSBS 158, insulin provided as ordered. Received a phone call from granddaughter, and spoke to her. When meds were provided, was given the name of each medicine, he also wanted to see the package, which was shown to him. Paranoid regarding medication. A&Ox4 with confusion noted. Was non compliant with snacks, refusing the protein choices he was offered, and ate only the sweets. Retired to bed @ HS, bed in low position, bed alarm set. Will continue to monitor for safety and comfort as per unit protocol.
[2021-02-21 09:00] VITALS: BP 132/67
--- NOTE | 2021-02-21 14:16 | NUR ---
Assumed pt care at 0700. pt was alert and oriented to person, place and time. Assessments completed, vss. pt took meds whole, no difficulty noted. denies si/hi. pt c/o pain, pain meds offered to pt. pt refused pain meds, pt stated he did not want to get dependent on pain meds. ambulates with a steady gait. no sign of acute distress noted upon assessments. pt is calm and co-operative. No insulin administered to pt at this time. pt blood sugar was 44 . apple juice administered to pt. DR Rojas was notified. At time pt is in his room resting. PT GRAND DAUGHTER VISITED DURING AM HOURS. WILL CONTINUE TO MONITOR PT.
--- NOTE | 2021-02-21 14:42 | NUR ---
SHANI emailed Harpreet Serrano and requested a medicaid screening be completed on the Pt. SHANI will continue to follow up.
--- NOTE | 2021-02-21 14:43 | NUR ---
SHANI recieved a call from the Pt's daughter, Lorraine [phone]. Lorraine informed she was able to speak with Dr. Pillai. Also that her mother informed that the Pt had a prior dx of dementia. However Pt was not upfront about his information to his family. Pt did have a home health nurse coming out 1 per week. Pt had no other services to help in the home. Lorraine also reported that the Pt does not have a DPOA. They Pt's currently has an exparte on the Pt but it has not been served due to the Pt being on this unit. Lorraine explained that the Pt's is afraid of the Pt and unable to care for him in the home due to his behaviors. SHANI provided education on DPOA, incapacitation, and guardianship. SHANI also informed that if a Pt does not have a decision maker they can't be placed unless the Pt consents and signs themselves into the residential. SHANI encouraged the family to speak with an director of business systems concerning guardianship. SHANI will continue to follow up
[2021-02-21 19:04] VITALS: BP 125/67
--- NOTE | 2021-02-22 03:06 | NUR ---
02-21-21 CARE TRANSFERRED 1899. LATER OBSERVED PT WALKING IN HALLWAY WITH WALKER, SLIGHT ALTERED GAIT R/T TOE AMPUATATION, PT AAOX3, RR EVEN AND NONLABRED ON RA. PT DENIES PAIN AND SI/HI. PT REPORTED HE IS READY TO GO HOME AND ACKNOWLEDGES THAT HE SOMETIMES FORGETS THINGS. PT SOCK/DRESSING/C/D/I, PT HAS REMAINED CALM AND COOPERATIVE. PT ATE 100% HS SNACK OF COOKIE PACK WITH CARTON OF MILK. DURING MEDICATION ADMIN PT HAD NO DIFFICULITES. PT REPORTED HE WAS TIRED AND PT BED WAS ADJUSTED FOR COMFORT. ZERO S/S OF ACUTE DISTRESS NOTED, PT WILL CONTINUE TO BE MONITOR PER [facility] PROTOCOL.
[2021-02-22 09:49] VITALS: BP 130/68
[2021-02-22 09:59] VITALS: BP 130/68
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
--- NOTE | 2021-02-22 11:24 | NUR ---
1120 RESUMMED CARE FROM OVERNIGHT SHIFT THIS AM, PATIET IN DAY ROOM SITTING QUIET. PATIENT ALERT ORIENTED TIMES 4 PATIENT ATE BREAKFAST TOOK MEDICATION WITHOUT INCIDENCE. PATIENT DENIES SI/HI/AH/VH AT PRESENT PATIENTS ABDOMEN SOFT BOWEL SOUNDS PRESENT. PATIENTS LUNGS CLEAR PATIENT STATES HE NEEDS A YARD JOCKEY DUE TO HIM AND HIS GETTING A DIVORCE. PATIENT STATES HE HAS A LOT OF PROPERTY AND FEELS WILL TAKE EVERYTHING FROM HIM. I TOLD PATIENT NOT TO WORRY ABOUT THIS RIGHT NOW; HE NEEDED TO FOCUS ON GETTING BETTER. WILL CONTINUE TO MONITOR PATIENT FOR SAFETY AND BEHAVIORS.
[2021-02-22 19:44] VITALS: BP 127/63
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
[2021-02-23 09:29] VITALS: BP 130/53
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
--- NOTE | 2021-02-23 19:30 | NUR ---
0700 ASSUMED CARE OF PATIENT, PATIENT IN BED AT THAT TIME. AMB WITH STEADY GAIT USING WALKER. MEDICATION TAKEN WHOLE WITHOUT DIFFICULTY. DENIES PAIN, LS CLEAR, BS ACTIVE. AFTER AM MEDICATION PATIENT SLEPT IN ROOM AND WOKE UP DROWSY STATING "IT WAS THOSE MEDS THAT DID THIS TO ME". PATIENT REFUSING TO TAKE AFTERNOON MEDICATION SEROQUIL STATES "I DO NOT NEED IT AND IF IM NOT GOING TO TAKE IT WHEN I LEAVE THEN NO REASON TO START IT HERE. PATIENT IS CALM SITTING IN DAYROOM WATCHING TV AT TIMES.
[2021-02-23 20:00] VITALS: BP 130/43
--- NOTE | 2021-02-23 21:09 | NUR ---
ASSUMED CARE AT 1900. PATIENT LYING IN BED AT THAT TIME. NO S/S OF DISTRESS OR DISCOMFORT. PATIENT TOOK HS MEDS WHOLE WITHOUT DIFFICULTY, REQUESTED NOT TO TAKE SEROQUEL. PATIENT IS A&OX4, CALM. DENIES ANY PAIN. REPORTS LBM TODAY. AMBULATES INDEPENDENTLY WITH WALKER. FALL PRECAUTIONS IN PLACE. WILL CONTINUE TO MONITOR.
[2021-02-24 08:40] VITALS: BP 123/64
--- NOTE | 2021-02-24 16:51 | NUR ---
0700 ASSUMED CARE OF PATIENT, PATIENT IN BED AT THAT TIME. AMB WITH WALKER WITH SLIGHT ALTERED GAIT DUE TO RIGHT GREAT TOE AMPUTATION. NO C/O PAIN. DENIES SI/HI. A+O X4. CALM & COOPERATIVE. MEDICATION TAKEN WHOLE WITHOUT DIFFICULTY. PATIENT REFUSING SEROQUEL STATING "I DO NOT WANT THAT MEDICATION". DR GO HER TO SEE PATIENT, SAWSMITH DISCUSSED DECREASED AND INCREASED BLOOD SUGARS AND PATIENTS DAILY INSULIN ROUTINE WITH DR. Mohan DUMAS HER TO SEE PATIENT, DRESSING REMOVED AND WOUND TO LEFT GREAT TOE OBSERVED. NO DRAINAGE NOTED, STITCHES IN PLACE. DR DUMAS VERBAL ORDER TO CONTINUE WOUND CARE DAILY DRESSING CHANGES RECIEVED. SAWSMITH CLEANED INCISION AREA WITH NS, BETADINE APPLIED WITH SMALL GAUZE OVER INCISION AND WRAPPED WITH STRETCH GAUZE BANDAGE. WRAPPED WITH COBAN. PATIENT IN DAYROOM COMMUNICATING WELL WITH PEERS. 1700 VISITOR HERE TO SEE PATIENT.
[2021-02-24 20:00] VITALS: BP 128/62
--- NOTE | 2021-02-25 00:22 | NUR ---
ASSUMED CARE OF PATIENT AT 1900 WHEN PATIENT WAS SITTING ON BED IN ROOM AWAKE AND ALERT X 4. HAD MULTIPLE CALLS FROM VARIOUS FAMILY MEMBERS CONCERNED ABOUT MEDICATIONS, VOICED THAT THIS NETWORK FIELD ENGINEER COULD NOT DISCUSS HIS PRIVATE INFORMATION WITH ANY OF THEM AND REFERRED THEM TO THE PATIENT. PATIENT HAD REITERATED HE DID NOT WANT ANY OF THEM TO HAVE ANY OF HIS PRIVATE MEDICAL INFORMATION. NOTED BANDAGE TO LEFT FOOT HAD MOVED AND EXPOSED INCISION, REWRAPPED FOOT, INCISION CLEANED WITH NO S/S OF INFECTION. DENIES ANY PAIN TO FOOT. TOOK MEDS WHOLE WITHOUT DIFFICULTY, DECLINED TO TAKE QUETIAPINE STATING HE DOESN'T LIKE HOW IT MAKES HIM FEEL AND HE WOULD NOT BE TAKING IT AT HOME. PATIENT IS CALM AND COOPERATIVE WITH STAFF. CURRENTLY LYING IN BED APPEARING TO BE ASLEEP. WILL CONTINUE TO MONITOR.
[2021-02-25 03:18] VITALS: BP 106/60
[2021-02-25 03:29] VITALS: BP 85/47
[2021-02-25 03:44] VITALS: BP 77/41
[2021-02-25 04:01] LABS: HEMATOCRIT 26.7 % (42.0-52.0); HEMOGLOBIN 8.6 gm/dL (14.0-18.0); MCH 31.4 pg (26.0-34.0); MCV 97.9 fL (80.0-100.0); PLATELET COUNT 187 thou/uL (150-400); RBC 2.73 mil/uL (4.50-6.00); RDW 16.3 % (10.5-14.5); WBC 6.3 thou/uL (4.0-11.0)
[2021-02-25 04:17] LABS: ALBUMIN 2.5 g/dL (3.4-5.0); ANION GAP 7 mmol/L (7-16); BUN 54 mg/dL (7-18); CALCIUM 8.5 mg/dL (8.5-10.1); CHLORIDE 108 mmol/L (98-107); CO2 23 mmol/L (21-32); CREATININE 3.2 mg/dL (0.7-1.3); GLUCOSE 336 mg/dL (74-106); SGOT 83 U/L (15-37); SGPT 71 U/L (16-63); SODIUM 138 mmol/L (136-145); TOTAL BILIRUBIN 0.4 mg/dL (0.2-1.0); TOTAL PROTEIN 6.2 g/dL (6.4-8.2); TROPONIN-I <0.06 ng/mL (<0.06)
--- NOTE | 2021-02-25 04:24 | NUR ---
AT APPROX 0315 PATIENT HEARD CALLING OUT FOR NURSE FROM ROOM. PATIENT C/O CHEST PAIN. RAISED HEAD OF BED, VS 106/60, 93HR, 96%, 16RR, 96.8. NOTIFIED ANALYZER SALES PROVIDER IGNACIO SAMAYOA ORDERS FOR STAT CBC, CMP, TROPONIN, EKG, & NITRO 0.4MG Q5 MINS X 3 VIA TELEPHONE ORDERS READ BACK. NOTIFIED LOAN CONSULTANT FARZAD. 1ST DOSE OF NITRO GIVEN AT 0322, PATIENT RATING PAIN 9/10. 2ND DOSE GIVEN APPROX 0329 AND AT THAT TIME PATIENT RATING PAIN 7/10. , RAPID RESPONSE CALLED. NEXT VITALS 85/47 AT APPROX 0329. VITALS AT O344 77/41, 44HR, 99%. PATIENT RESPONSIVE TO VERBAL STIMULI, GRIMACING. RESPONSE TEAM ARRIVED WITH JOURNEYMAN LEVEL ACOUSTIC ANALYST. EKG COMPLETED AT BED SIDE. LABS DRAWN BY LABRATORY AT BED SIDE. PATIENT TRANSPORTED TO [facility] AT APPROX 0355.
[2021-02-25 04:28] LABS: ANISOCYTOSIS 1+; ATYPICAL LYMPHS 1 %; NUCLEATED RBCS 1 /100WBC
--- NOTE | 2021-02-25 05:00 | NUR ---
RECEIVED CALL AT 0340 FROM RN CARING FOR PATIENT STATING PT WAS HAVING CHEST PAIN. RN INQUIRING ABOUT LAB DRAW. ASKED IF EKG HAD BEEN ORDERED YET. EKG HAD NOT BEEN ORDERED. INSTRUCTED RN TO OBTAIN ORDER AND THIS DIRECTOR SYSTEMS WOULD PERFORM EKG. ON ARRIVAL TO UNIT AT 0345, INSTRUCTED RN TO ACTIVATE MANAGER BUILDING. TWO DOSES OF SL NITRO HAD BEEN GIVEN TO PT PRIOR TO ARRIVAL TO FLOOR. EKG OBTAINED AT 0348 WITH JUNCTIONAL RHYTHM NOTED. HIMS ASSISTANT FRONT DESK MANAGER IMMEDIATELY NOTIFIED OF FINDING AND PLAN TO TX TO MONITORED BED. PT TRANSFERED TO AT 0355. SEE RAPID RESPONSE INTERVENTIONS FOR FURTHER DETAILS. PT MOVED TO ICU AT 0500 PER NEPHROLOGY.
[2021-02-25 05:06] LABS: POTASSIUM 7.6 mmol/L (3.5-5.1)
--- NOTE | 2021-02-25 13:15 | EKG ---
[address] [address] ELECTROCARDIOGRAM REPORT Name: SIRENA SNYDER Room #: [facility] DIS IN M.R.#: [id number] Admission: 02/20/21 Attend Phys: Morales Templeton DO Discharge: 02/25/21 Date of : 49 Report #: [id number] [facility] Test Date: 2021-02-25 Test Time: 04:43:17 Pat Name: SIRENA SNYDER Department: Room: [facility] Gender: M Bale Sewer: [id number] : 1945 Requested By: Cece Hassan Order Number: [id number] MD: Michel Rogers Measurements Intervals [place] Rate: 73 P: AL: QRS: 63 QRSD: 101 T: 165 QT: 358 QTc: 395 Interpretive Statements Normal sinus rhythm Compared to ECG 02/25/2021 04:42:21 Electronically Signed On 02-25-2021 13:15:17 CDT by Michel Rogers [email or web address] <ELECTRONICALLY SIGNED> By: Michel Rogers MD 02/25/21 1315 0443 0443 Michel Rogers MD /VALERIO
--- NOTE | 2021-02-25 13:15 | EKG ---
[address] [address] ELECTROCARDIOGRAM REPORT Name: SIRENA SNYDER Room #: [facility] DIS IN M.R.#: [id number] Admission: 02/20/21 Attend Phys: Morales Templeton DO Discharge: 02/25/21 Date of : 49 Report #: [id number] [facility] Test Date: 2021-02-25 Test Time: 04:42:21 Pat Name: SIRENA SNYDER Department: Room: [facility] Gender: M Law Instructor: [id number] : 1945 Requested By: Kirill Glover Order Number: [id number] MD: Michel Rogers Measurements Intervals [place] Rate: 74 P: 72 GA: 137 QRS: 61 QRSD: 87 T: 194 QT: 334 QTc: 371 Interpretive Statements Sinus rhythm Nonspecific ST changes Compared to ECG 02/20/2021 04:12:26 Possible ischemia now present Electronically Signed On 02-25-2021 13:14:50 CDT by Michel Rogers [email or web address] <ELECTRONICALLY SIGNED> By: Michel Rogers MD 02/25/21 1314 0442 0442 Michel Rogers MD /VALERIO
--- NOTE | 2021-02-26 12:05 | EKG ---
[address] [address] ELECTROCARDIOGRAM REPORT Name: SIRENA SNYDER Room #: [facility] DIS IN M.R.#: [id number] Admission: 02/20/21 Attend Phys: Morales Templeton DO Discharge: 02/25/21 Date of : 49 Report #: [id number] [facility] Test Date: 2021-02-25 Test Time: 03:48:40 Pat Name: SIRENA SNYDER Department: Room: [facility] Gender: M Program Director Cable Television: BLU : 1945 Requested By: Cece Hassan Order Number: [id number] MD: Michel Rogers Measurements Intervals [place] Rate: 30 P: OR: QRS: 39 QRSD: 96 T: 74 QT: 549 QTc: 388 Interpretive Statements Junctional rhythm Compared to ECG 02/20/2021 04:12:26 Junctional rhythm now present Sinus rhythm no longer present Electronically Signed On 02-26-2021 12:05:48 CDT by Michel Rogers [email or web address] <ELECTRONICALLY SIGNED> By: Michel Rogers MD 02/26/21 1205 0348 0348 Michel Rogers MD /VALERIO
--- NOTE | 2021-02-26 12:06 | EKG ---
[address] [address] ELECTROCARDIOGRAM REPORT Name: SIRENA SNYDER Room #: [facility] DIS IN M.R.#: [id number] Admission: 02/20/21 Attend Phys: Morales Templeton DO Discharge: 02/25/21 Date of : 49 Report #: [id number] [facility] Test Date: 2021-02-25 Test Time: 04:46:09 Pat Name: SIRENA SNYDER Department: Room: [facility] Gender: M Molasses And Caramel Operator: [id number] : 1945 Requested By: Cece Hassan Order Number: [id number] MD: Michel Rogers Measurements Intervals [place] Rate: 75 P: 47 IA: 134 QRS: 60 QRSD: 80 T: 179 QT: 373 QTc: 417 Interpretive Statements Sinus rhythm Repol abnrm suggests ischemia, diffuse leads Compared to ECG 02/25/2021 04:43:17 Early repolarization now present Possible ischemia now present Electronically Signed On 02-26-2021 12:06:02 CDT by Michel Rogers [email or web address] <ELECTRONICALLY SIGNED> By: Michel Rogers MD 02/26/21 1206 0446 0446 Michel Rogers MD /[facility]
== END 2021-02-25 03:45 | disposition short-term general hospital (02) | DRG 885 ==
LOC: SBH 05:39
PROVIDERS: Nurse Practitioner Family; ADMIT Psychiatry & Neurology Psychiatry; ATTEND Psychiatry & Neurology Psychiatry
DX: F29 Unspecified psychosis not due to a substance or known physiological condition (principal); N18.9 Chronic kidney disease, unspecified; E44.0 Moderate protein-calorie malnutrition; N39.0 Urinary tract infection, site not specified; E11.51 Type 2 diabetes mellitus with diabetic peripheral angiopathy without gangrene; M19.90 Unspecified osteoarthritis, unspecified site; I25.10 Atherosclerotic heart disease of native coronary artery without angina pectoris; E78.5 Hyperlipidemia, unspecified; I12.9 Hypertensive chronic kidney disease with stage 1 through stage 4 chronic kidney disease, or unspecified chronic kidney disease; E03.9 Hypothyroidism, unspecified; I25.5 Ischemic cardiomyopathy; E11.22 Type 2 diabetes mellitus with diabetic chronic kidney disease; Z20.822 Contact with and (suspected) exposure to COVID-19; Z89.412 Acquired absence of left great toe; Z68.24 Body mass index [BMI] 24.0-24.9, adult; Z85.46 Personal history of malignant neoplasm of prostate; Z95.1 Presence of aortocoronary bypass graft; Z79.4 Long term (current) use of insulin; Z79.899 Other long term (current) drug therapy; Z88.5 Allergy status to narcotic agent; Z88.8 Allergy status to other drugs, medicaments and biological substances
CPT/HCPCS: 10880

== ENCOUNTER 2021-02-25 04:11 | Inpatient (IN) | payer OTHER ==
[~2021-02-25] VITALS: Ht 172.7 cm; Wt 78.0 kg
[2021-02-25] VITALS (19 sets, daily range): BP systolic 105–134; BP diastolic 33–73
--- NOTE | 2021-02-25 04:27 | NUR ---
DR.COUCHANNAL BRADY ADVISED OF PT'S JUNCTIONAL RHYTHM POTASSIUM LEVEL OF 7.2, AND BRADYCARDIA. ORDER TO CONSULT NEPHROLOGY TO ADDRESS POTASSIUM LEVEL OBTAINED.
--- NOTE | 2021-02-25 04:56 | NUR ---
RETURNED PAGED ORDERED 1 AMP CALCIUM GLUCONATE IV X1, 1 AMP DEXTROSE 50 IV X1, 10 UNITS REGULAR INSULIN IV X1 AND 10 MG ALBUTEROL INHALATION TREATMENT ALL WERE GIVEN PREVIOUSLY UNDER THE DIRECTION OF CLAIRE GRESHAM PT TO BE MOVED TO ICU. CODE TEAM AT BEDSIDE.
[2021-02-25 05:04] LABS: CHOLESTEROL 113 mg/dL (<200); HDL CHOLESTEROL 46 mg/dL (>40); LDL CHOLESTEROL 53 mg/dL (<100); SERUM ASSESSMENT Clear; TC:HDL 2.5 Ratio (Not establshd); TRIGLYCERIDE 71 mg/dL (<150); VLDL 14 mg/dL (<40)
--- NOTE | 2021-02-25 06:19 | NUR ---
0515- Patient here from [facility] after a stop on 3 after a rapid response call for chest pain. Patient was found to have high potassium after subsequent bradycardia and chest pain/nausea. Patient given atropine, epi, calcium, 10 units regular insulin, 1 amp D50, high dose albuteral aerosol tx, 1 amp bicarb, and 1 liter of IVF prior to coming to ICU. Upon arrival to ICU patient awake and talking. States he did not want his updated about his care. Potassium redraw 6.[address] Thompson. Pt heart rate upon arrival to ICU in the 70s, sinus. Now HR is in the 40-50's, looks junctional. Blood pressure holding at 102/59.
[2021-02-25 09:26] LABS: CALCIUM 9.6 mg/dL (8.5-10.1); CREATININE 3.3 mg/dL (0.7-1.3)
[2021-02-25 09:28] LABS: TROPONIN-I 1.28 ng/mL (<0.06)
--- NOTE | 2021-02-25 10:02 | NUR ---
Per Dr. Pelletier will arrive after he finishes operating. Requests urology cart.
--- NOTE | 2021-02-25 10:27 | NUR ---
Bladder scan 340cc
[2021-02-25 14:18] LABS: CREATININE 3.2 mg/dL (0.7-1.3)
[2021-02-25 14:24] LABS: POTASSIUM 6.6 mmol/L (3.5-5.1)
[2021-02-26] VITALS (13 sets, daily range): BP systolic 110–164; BP diastolic 48–82
[2021-02-26 02:05] LABS: GLYCOHEMOGLOBIN (HGB A1C) 6.1 % (4.8-5.6)
[2021-02-26 03:44] LABS: HEMOGLOBIN 7.7 gm/dL (14.0-18.0); MCHC 32.2 g/dL (28.0-37.0); MCV 96.3 fL (80.0-100.0); RBC 2.5 mil/uL (4.50-6.00); RDW 15.9 % (10.5-14.5)
[2021-02-26 04:06] LABS: ALBUMIN 2.3 g/dL (3.4-5.0); CREATININE 2.5 mg/dL (0.7-1.3); MAGNESIUM 1.9 mg/dL (1.8-2.4); PHOSPHORUS 4.1 mg/dL (2.6-4.7)
[2021-02-26 04:09] LABS: POTASSIUM 4.8 mmol/L (3.5-5.1); TROPONIN-I 5.32 ng/mL (<0.06)
--- NOTE | 2021-02-26 04:57 | NUR ---
This RN spoke to Dr. Perez regarding patients elevated troponin at 0455. Discussed patient status, orders to not call critical troponins to cardiology placed.
--- NOTE | 2021-02-26 08:31 | NUR ---
Pt able to ambulate short distance to toilet with one person assist. Consumned 80% of breakfast, able to talk on phone with family.
--- NOTE | 2021-02-26 18:32 | NUR ---
assumed care of pt on arrival to unit. pt oriented x4 pleasant in no acute distress. up w/ sba. ivf infusing per order. refusing to take seroquel. complains of urethral irritation - relieved with tylenol. vitals stable. socializing with family at [facility]. [facility].
[2021-02-27 04:02] VITALS: BP 148/61
[2021-02-27 04:48] LABS: HEMATOCRIT 26.5 % (42.0-52.0); HEMOGLOBIN 8.7 gm/dL (14.0-18.0); MCH 31.4 pg (26.0-34.0); MCHC 32.8 g/dL (28.0-37.0); MCV 95.8 fL (80.0-100.0); RBC 2.77 mil/uL (4.50-6.00); RDW 15.9 % (10.5-14.5); WBC 7.1 thou/uL (4.0-11.0)
[2021-02-27 05:10] LABS: ALBUMIN 2.3 g/dL (3.4-5.0); CALCIUM 8.8 mg/dL (8.5-10.1); CREATININE 1.9 mg/dL (0.7-1.3); MAGNESIUM 1.7 mg/dL (1.8-2.4); PHOSPHORUS 3.3 mg/dL (2.5-4.9); POTASSIUM 4.4 mmol/L (3.5-5.1)
[2021-02-27 05:16] LABS: TROPONIN-I 1.61 ng/mL (<0.06)
--- NOTE | 2021-02-27 05:26 | NUR ---
DARIA FROM LAB CALLED TROP 1.61. ALL APPROPRIATE PARTIES NOTIFIED.
--- NOTE | 2021-02-27 05:38 | NUR ---
CONTACTED NURSE PRACTIONER, CLAIRE WHITE AT 05:33 ON THE CRITICAL TROPININ OF 1.61, NO NEW ORDERS, NUMBER IS DOWN FROM YESTERDAY.
[2021-02-27 07:04] VITALS: BP 146/63
--- NOTE | 2021-02-27 12:37 | NUR ---
INITIAL ASSESSMENT: Received consult. SHANI reviewed chart and spoke with nursing and attending physician. Pt was admitted from [facility] due to chest pain. Cardiology consulted. Pt is progressing towards goals for discharge. Pt will not return to [facility] unit prior to discharge. SHANI met with pt at bedside. Introduced role of SW. Pt is alert/orientated to self and place. Pt states he is wanting to discharge home. SW offered to call his , Rebecca or Zarina. Pt requested SW contact his . SHANI spoke with Rebecca via phone. Introduced role of SHANI. Pt lives at home with his . Pt had recent toe amputation and was on services with [facility] for wound care. Pt has a cane. SW discussed discharge plan with pt's . Pt's asked about having pt evaluated by [facility] for inpt acute rehab. SHANI explained admission criteria and need for insurance auth for post-acute care. Pt's verbalized understanding, but continues to request [facility] eval. SW also discussed SNF placement. Options reviewed. Pt's states that if insurance denies both [facility] and SNF, she will bring pt home with HH. Rebecca is in the process of finding someone to help take care of pt at nighttime, as he gets up and has become agitated and aggressive at nighttime. OT eval ordered. SHANI requested [facility] consult. SHANI notified [facility] director of rehabilitation and wellness. In-network SNF list left for pt's to review. SHANI updated pt's nurse. SHANI is following to assist as needed with discharge planning.
[2021-02-27 15:32] VITALS: BP 158/65
--- NOTE | 2021-02-27 16:28 | 2DMMODE ---
[facility] [place] [address] 2 D/M-MODE ECHOCARDIOGRAM Name: SIRENA SNYDER Room #: 351-P ADM IN M.R.#: [id number] Admission: 02/25/21 Attend Phys: Mouna Rosas Lelagill Discharge: Date of : 49 Report #: [id number] THIS REPORT FOR: cc: Kevin Snider,Reynaldo Sal MD [facility] ~ APPROVED REPORT Study performed: 02/27/2021 14:15:20 EXAM: Comprehensive 2D, Doppler, and color-flow Echocardiogram Patient Location: In-Patient Room #: 351 Status: routine BSA: 1.90 HR: 69 bpm BP: 146/63 mmHg Rhythm: NSR Other Information Study Quality: Adequate Risk Factors: Cardiac Risk Factors: DM Indications Diabetes Chest Pain Hypertension/HDD 2D Dimensions RVDd: 44.86 mm IVSd: 8.72 (7-11mm) LVOT Diam: 20.90 (18-24mm) LVDd: 44.75 mm PWd: 13.05 (7-11mm) LVDs: 26.64 (25-40mm) Left Atrium: 33.07 (27-40mm) Aortic Root: 32.85 mm LV Single Plane 4CH: 54.53 % LV Single Plane 2CH: 36.12 % Biplane EF: 45.1 % Volumes Left Atrial Volume (Systole) [facility] [place] [place] [address] 2 D/M-MODE ECHOCARDIOGRAM Name: SIRENA SNYDER Room #: 351-P ADM IN M.R.#: [id number] Admission: 02/25/21 Attend Phys: Mouna Vogel Discharge: Date of : 49 Report #: [id number] Single Plane 4CH: 27.95 mL Single Plane 2CH: 85.20 mL Aortic Valve AoV Peak Demian.: 2.26 m/s AO Peak Gr.: 20.47 mmHg LVOT Max P.02 mmHg AO Mean Gr.: 8.46 mmHg LVOT Mean P.62 mmHg AO V2 Mean: 1.28 m/s LVOT Max V: 1.12 m/s AO V2 VTI: 45.23 cm LVOT Mean V: 0.71 m/s NOLBERTO (VTI): 2.54 cm2 LVOT V1 VTI: 33.50 cm NOLBERTO Vmax: 1.70 cm2 SV (LVOT): 114.91 mL Mitral Valve E/A Ratio: 2.2 MV Decel. Time: 186.57 ms MV E Max Demian.: 1.11 m/s MV A Demian.: 0.51 m/s MV PHT: 54.10 ms MVA (PHT): 2.08 cm2 IVRT: 64.59 ms Pulmonary Vein P Vein S: 0.40 m/s P Vein A: 0.16 m/s P Vein D: 0.51 m/s P Vein A Dur.: 110.7 msec P Vein S/D Ratio: 0.78 Tricuspid Valve TR Peak Demian.: 2.73 m/s RAP Estimate: 10.00 mmHg TR Peak Gr.: 29.73 mmHg RVSP: 39.00 mmHg Left Ventricle The left ventricle is normal size. There is normal LV segmental wall motion. There is normal left ventricular wall thickness. The left ventricular systolic function is normal. The left ventricular ejection fraction is within the normal range. LVEF is 60-65%. Left ventricular filling pattern is normal for age. Right Ventricle The right ventricle is normal size. The right ventricular systolic function is normal. Atria The left atrium size is normal. The right atrium size is normal. Aortic Valve [facility] [address] [place] [address] 2 D/M-MODE ECHOCARDIOGRAM Name: SIRENA SNYDER Room #: 351-P [facility] IN .R.#: [id number] Admission: 02/25/21 Attend Phys: Mouna Vogel Discharge: Date of : 49 Report #: [id number] The Aortic valve is mildly sclerotic. No aortic regurgitation is present. There is no aortic valvular stenosis. Mitral Valve The mitral valve is normal in structure. Mild to moderate mitral regurgitation. No evidence of mitral valve stenosis. Tricuspid Valve The tricuspid valve is normal in structure. Mild tricuspid regurgitation. PAP 35 mmHg. Pulmonic Valve The pulmonary valve is normal in structure. There is no pulmonic valvular regurgitation. Great Vessels The aortic root is normal in size. IVC is normal in size and collapses >50% with inspiration. Pericardium There is no pericardial effusion. There is no pleural effusion. <Conclusion> The left ventricular systolic function is normal. There is normal LV segmental wall motion. LVEF is 60-65%. The aortic valve is mildly sclerotic. No aortic regurgitation or stenosis The mitral valve is normal in structure. Mild to moderate mitral regurgitation. Pulmonary artery pressure of 35 mmHg. There is no pericardial effusion. <ELECTRONICALLY SIGNED> By: Reynaldo Messer MD, FACC 02/27/21 1627 [id number] Reynaldo Messer MD, FACC /INF
[2021-02-27 19:17] VITALS: BP 165/78
[2021-02-28 04:05] VITALS: BP 164/83
--- NOTE | 2021-02-28 04:19 | NUR ---
ASSUMED CARE OF PATIENT AT 1900. PATIENT REMAINS CALM, ANSWERS ALL QUESTIONS APPROPRIATELY. REFUSING SERAQUEL STILL. PROGRESSING TOWARDS POC GOALS.
[2021-02-28 06:15] LABS: HEMATOCRIT 28.8 % (42.0-52.0); HEMOGLOBIN 9.3 gm/dL (14.0-18.0); MCH 30.9 pg (26.0-34.0); MCHC 32.3 g/dL (28.0-37.0); MCV 95.6 fL (80.0-100.0); RBC 3.01 mil/uL (4.50-6.00); RDW 16.1 % (10.5-14.5); WBC 6.3 thou/uL (4.0-11.0)
[2021-02-28 06:43] LABS: ALBUMIN 2.3 g/dL (3.4-5.0); CALCIUM 8.8 mg/dL (8.5-10.1); CREATININE 1.6 mg/dL (0.7-1.3); MAGNESIUM 1.6 mg/dL (1.8-2.4); POTASSIUM 4.2 mmol/L (3.5-5.1)
[2021-02-28 07:33] VITALS: BP 173/91
[2021-02-28 11:11] LABS: URINE BILIRUBIN NEGATIVE (Negative); URINE BLOOD 3+ (Negative); URINE CLARITY CLEAR; URINE COLOR YELLOW; URINE GLUCOSE-RANDOM* 1+ (Negative); URINE KETONES NEGATIVE (Negative); URINE LEUKOCYTES-REFLEX TRACE (Negative); URINE NITRITE-REFLEX NEGATIVE (Negative); URINE PROTEIN (DIPSTICK) 2+ (Negative); URINE SPECIFIC GRAVITY 1.015 (1.005-1.035); URINE UROBILINOGEN 0.2 E.U./dl (0.2-1.0)
[2021-02-28 11:28] LABS: BACTERIA-REFLEX 1-9 Few /HPF (None Seen); CASTS None Seen /LPF (None Seen); CRYSTALS None Seen /LPF (None Seen); SQUAMOUS 0-3 Few /LPF (0-3); URINE WBC-REFLEX 0-5 Rare /HPF (0-5)
[2021-02-28 11:29] LABS: RENAL EPITHELIAL CELLS 0-3 Few /LPF (None Seen)
--- NOTE | 2021-02-28 13:39 | NUR ---
CARE ASSUMMED THIS AM, PT ALERT AND ORIENTED X4, PT DENIES ANY CHEST PAIN, NAUSEA AND VOMITTING. PT COMPLAINS OF PAIN, DUE TO STEINER CATHETER. CALLED UROLOGIST, THEY STATED STEINER CATHETER NEEDS TO BE IN PLACE UNTIL 03/04. PT MADE AWARE. TYLENOL GIVEN FOR PAIN. STEINER CATHETER CONTINUES TO BE IN PLACE, PATENT AND SECURED. FALL PRECAUTIONS IN PLACE. PT DENIES ANY NEEDS, WILL CONTINUE TO MONITOR
[2021-02-28 14:59] VITALS: BP 153/63
--- NOTE | 2021-02-28 15:24 | NUR ---
SHANI reviewed chart and spoke with nursing and attending physician. Pt has angel catheter in place until 03/04 per urology. SW spoke with pt's via phone regarding discharge plan. Pt does not meet admission criteria for 5N. SW explained to pt's and discussed SNF placement. Pt's does not want pt to go to a SNF and states that she will bring pt back home. Pt's states she is in the process of hiring someone to be at their home in the evening to assist with pt. SW asked pt's about the status of the ex-parte order. Pt's reports that the police had recommended that she file one, due to pt's behaviors in the home setting. Pt's reports that it has not yet been filed with the court. SW discussed guardianship process. Pt's family was provided with info regarding guardianship, while pt was on the [facility] unit. Pt's states that their dtr has a meeting scheduled with an estate attorney today to discuss the guardianship process. Pt's family has been provided with a letter for [facility] unit physician to provide to the estate attorney to support need for guardianship. Pt's thought pt had completed a healthcare DPOA document during a previous stay at [facility]. SW reviewed scanned images and was unable to find a DPOA document. SW left voice message for pt's PCP's office to see if they have any documentation on file. Requested documentation to be sent to SHANI if available. SHANI discussed case with Director of Case Mgmt, AUDIT REVIEWER and Risk Mgmt. Pt is able to discharge home when medically stable. Pt's family to continue working on guardianship and will be encouraged to contact the police if needed due to pt's behaviors. SW followed up with pt's via phone to further discuss discharge plan. Pt's states that their children will rotate spending the night with pt and at home. SW discussed HH services v. post-acute placement. Pt's states that she and pt have been for 46 years and she wants to take care of him as best as she can at this time. SW explained that when pt gets home and if family decides that he requires too much care in the home setting, pt can be placed in a facility from home with the assistance of HH and his PCP. Pt's verbalized understanding and would like to work towards plan of pt discharging home with HH. Pt was on service with [facility] prior to admission. Pt's would like to use them again. SW faxed referral to [facility] and spoke with intake, who will review pt's info. SHANI is following to assist as needed with discharge planning.
[2021-02-28 19:37] VITALS: BP 161/62
--- NOTE | 2021-03-01 01:20 | NUR ---
PROGRESS PT A/O X4, PLEASANT AND COOPERATIVE. CONTINUES TO REFUSE SEROQUEL STATED "I DON'T KNOW WHY THEY KEEP ORDERING THIS I'M NOT GOING TO TAKE IT". REPORTS PAIN IN PENIS RELATED TO STEINER BUT VERBALIZED UNDERSTANDING OF NEED TO KEEP IN AFTER EDUCATING ON STRICTURE AND DILATATION, TO BE REMOVED ON 03/04/21 PER UROLOGY. TELE INTACT READING SR, VITAL SIGNS STABLE, LABS WNL. RIGHT GREAT TOE AMPUTATION SITE WITH SURGICAL DRESSING THAT REMAINS C/D/I. PEDAL PULSES WEAK TO BOTH FEET. TYLENOL GIVEN FOR PAIN IN PENIS WITH EFFECT PT SLEEPING AFTER. IVF'S CONTINUE.
[2021-03-01 03:44] VITALS: BP 171/75
[2021-03-01 06:11] LABS: HEMOGLOBIN 9.5 gm/dL (14.0-18.0); MCH 31.3 pg (26.0-34.0); MCHC 32.8 g/dL (28.0-37.0); MCV 95.4 fL (80.0-100.0); RBC 3.04 mil/uL (4.50-6.00); RDW 15.9 % (10.5-14.5); WBC 5.4 thou/uL (4.0-11.0)
[2021-03-01 06:29] LABS: ALBUMIN 2.1 g/dL (3.4-5.0); CALCIUM 8.8 mg/dL (8.5-10.1); CREATININE 1.4 mg/dL (0.7-1.3); MAGNESIUM 1.7 mg/dL (1.8-2.4); PHOSPHORUS 3.6 mg/dL (2.5-4.9)
--- NOTE | 2021-03-01 07:45 | NUR ---
PT HAD A 45 MINUTE PERIOD OF TACHYCARDIA RATES HIGH 170 BRIEFLY ROGELIO BERNAL AND NOTIFIED HEART RATE RESOLVED BUT EKG STILL OBTAINED WNL. CONTINUE TO MONITOR.
--- NOTE | 2021-03-01 08:19 | EKG ---
[address] [place] [address] ELECTROCARDIOGRAM REPORT Name: SIRENA SNYDER Room #: 351- ADM IN M.R.#: [id number] Admission: 02/25/21 Attend Phys: Mouna Rojas Discharge: Date of : 49 Report #: [id number] [facility] Test Date: 2021-03-01 Test Time: 07:25:02 Pat Name: SIRENA SNYDER Department: Room: [facility] Gender: M Apple Checker: MARCELINO : 1945 Requested By: Mouna Rojas Order Number: [id number] MD: Reynaldo Messer Measurements Intervals [place] Rate: 74 P: 50 AR: 142 QRS: 29 QRSD: 79 T: 89 QT: 400 QTc: 444 Interpretive Statements Sinus rhythm LVH with secondary repolarization abnormality Compared to ECG 02/25/2021 04:46:09 ST segment abnormalities less pronounced Electronically Signed On 03-01-2021 8:18:52 CDT by Reynaldo Messer [email or web address] <ELECTRONICALLY SIGNED> By: Reynaldo Messer MD, [facility] 03/01/21817 4 Reynaldo Messer MD, FACC /EPI
[2021-03-01 09:07] VITALS: BP 126/66
--- NOTE | 2021-03-01 11:59 | NUR ---
DISCHARGE NOTE: SHANI reviewed chart and spoke with nursing and attending physician. Pt is medically stable for discharge home today with services. SHANI received call from Marylou at [facility], stating they are able to accept pt on service when discharged. They are able to start care on Friday, 03/05. Pt will d/c home with a angel catheter, with plans to remove catheter and do a voiding trial. SHANI left voice message for pt's , Rebecca, to provide update and discuss discharge plan. Awaiting finalized discharge orders/summary at this time. SHANI is following to assist as needed with discharge planning.
[2021-03-01] MEDS ORDERED: SEROQUEL 25 MG25 M1 PO (12:34)
[2021-03-01] MEDS ORDERED: METOPROLOL SUCC25 M1 PO (12:34)
[2021-03-01] MEDS ORDERED: ACETAMINOPHEN325 M1 PO (12:34)
[2021-03-01] MEDS ORDERED: LIDOCAINE 2%2 %/5 GM TOP (12:49)
[2021-03-01 13:45] VITALS: BP 126/66
[2021-03-01 14:35] VITALS: BP 126/66
--- NOTE | 2021-03-01 15:49 | NUR ---
PT DISCHARGED HOME WITH AND HH..HH WILL START SAT...STEINER TO BE REMOVED February...LEG BAG APPLIED AND INSTRUCTIONS GIVN TO ...
--- NOTE | 2021-03-06 06:46 | HC ---
[facility] [place] [address] CONSULTATION Name: SIRENA SNYDER Room #: 351-P [facility] IN M.R.#: [id number] Admission: 02/25/21 Attend Phys: Mouna Ralph Bob Discharge: 03/01/21 Date of : 49 Report #: [id number] THIS REPORT FOR: cc: Kevin Snider David J. DO Al-Absi, Ahmed I. MD ~ DOC #: [id number] Ngozi Perez MD DATE OF SERVICE: 02/25/2021 REASON FOR CONSULTATION: Acute kidney injury and hyperkalemia. HISTORY OF PRESENT ILLNESS: The patient was transferred from the [facility] Unit to the third floor and then to the ICU. The patient is well known to me. He has chronic kidney disease. The patient followed in my clinic with a baseline creatinine of around 2.0. Apparently, the patient has been going through major issues with his wounds on his lower extremities, required angiogram, required an amputation of his big toe. This was in December. The patient was discharged on Augmentin. The patient then had some major behavioral issues and was admitted on the . During his hospital stay, he was initiated on Bactrim in the [facility] Unit. His baseline creatinine as stated above is in the 2 range. He has chronic kidney disease due to diabetes mellitus. He is status post right-sided nephrectomy. The patient had major rhythm issues and was found to have a creatinine way above his baseline with significant hyperkalemia after initiating Bactrim. The patient received all appropriate treatment for his hyperkalemia and was moved down to the ICU, Nephrology was asked to assist with the patient's hyperkalemia and acute kidney injury. Apparently, the patient had experienced some chest pain episodes in the [facility], was given nitroglycerin. This was complicated by hypotension. PAST MEDICAL HISTORY: 1. Prostate cancer. 2. Past nephrectomy. 3. Diabetes mellitus. 4. Coronary artery disease. 5. Peripheral vascular disease. 6. Status post amputation of the right great toe. 7. Left atherectomy. 8. Recent cardiac catheterization. 9. Bypass surgery. SOCIAL HISTORY: No drug abuse. FAMILY HISTORY: Significant for coronary artery disease. [facility] [address] [place] [address] CONSULTATION Name: SIRENA SNYDER Room #: 351-P [facility] IN M.R.#: [id number] Admission: 02/25/21 Attend Phys: Mouna Rojas Discharge: 03/01/21 Date of : 49 Report #: [id number] LISTED OUTPATIENT MEDICATIONS: 1. Bactrim. 2. Effient. 3. Amlodipine. 4. Gabapentin. 5. Insulin. 6. Methimazole. REVIEW OF SYSTEMS: GENERAL: No fever or chills. CARDIOVASCULAR: Chest pain during his stay in the Behavioral Unit. PULMONARY: No cough or hemoptysis. GASTROINTESTINAL: Denies nausea or vomiting. GENITOURINARY: No frequency, urgency. MUSCULOSKELETAL: As per the history of present illness. NEUROLOGIC: No headache. No dizziness. ALLERGIES: CODEINE, TRAMADOL, AND ATORVASTATIN. PHYSICAL EXAMINATION: GENERAL: He is alert, oriented, pleasant. VITAL SIGNS: Blood pressure is 114/33, pulse rate is 46. HEAD AND NECK: No jugular venous distention, no bruit, no thyromegaly. CHEST: Bilateral crackles. CARDIOVASCULAR: No rub. ABDOMEN: Soft, nontender. EXTREMITIES: Lower extremities, no edema. LABORATORY DATA: Reviewed. Sodium is 138, potassium was 7.6, went down to 6.8, BUN is 54, creatinine is 3.2, AST is 83, ALT is 71. ASSESSMENT AND PLAN: 1. Acute kidney injury due to hypotension. 2. Chronic kidney disease with a baseline creatinine of around 2. 3. Hyperkalemia due to Bactrim. 4. Hypotension. The patient is now down in the ICU and received all appropriate treatments for his hyperkalemia with a potassium trending down. His rhythm had stabilized. I will repeat his potassium level in the next hour or so. I will decide about further management of his hyperkalemia. Continue IV fluid. Discontinue Bactrim completely. I expect his kidney function to continue to improve to his baseline and his [facility] [address] [place] [address] CONSULTATION Name: SIRENA SNYDER Room #: 351-P [facility] IN M.R.#: [id number] Admission: 02/25/21 Attend Phys: Mouna Rojas Discharge: 03/01/21 Date of : 49 Report #: [id number] potassium to improve to within normal range after stopping his Bactrim. Ngozi Perez MD AIA/MARY JO <ELECTRONICALLY SIGNED> By: Ngozi Perez MD 03/06/21 0646 [id number] Ngozi Perez MD /nt
== END 2021-03-01 16:00 | disposition home health service (06) | DRG 280 ==
LOC: ICU 04:11 → 3W 04:11 → ICU 05:20 → 3W 02-26 13:06
PROVIDERS: Hospitalist; Internal Medicine; Nurse Practitioner Family; ADMIT Hospitalist; ATTEND Hospitalist
PROC: 0T7D8ZZ Dilation of Urethra, Via Natural or Artificial Opening Endoscopic (ICD-10-PCS; principal; 2021-02-25)
PROC: 05HQ33Z Insertion of Infusion Device into Left External Jugular Vein, Percutaneous Approach (ICD-10-PCS; principal; 2021-02-25)
DX: I21.4 Non-ST elevation (NSTEMI) myocardial infarction (principal); N17.0 Acute kidney failure with tubular necrosis; G92 Toxic encephalopathy; N39.0 Urinary tract infection, site not specified; F01.51 Vascular dementia, unspecified severity, with behavioral disturbance; I95.9 Hypotension, unspecified; E87.5 Hyperkalemia; N18.9 Chronic kidney disease, unspecified; E11.22 Type 2 diabetes mellitus with diabetic chronic kidney disease; I25.10 Atherosclerotic heart disease of native coronary artery without angina pectoris; E11.51 Type 2 diabetes mellitus with diabetic peripheral angiopathy without gangrene; T36.8X5A Adverse effect of other systemic antibiotics, initial encounter; E11.65 Type 2 diabetes mellitus with hyperglycemia; F29 Unspecified psychosis not due to a substance or known physiological condition; I12.9 Hypertensive chronic kidney disease with stage 1 through stage 4 chronic kidney disease, or unspecified chronic kidney disease; E05.90 Thyrotoxicosis, unspecified without thyrotoxic crisis or storm; M19.90 Unspecified osteoarthritis, unspecified site; N40.1 Benign prostatic hyperplasia with lower urinary tract symptoms; I25.5 Ischemic cardiomyopathy; I49.9 Cardiac arrhythmia, unspecified; E78.5 Hyperlipidemia, unspecified; M48.00 Spinal stenosis, site unspecified; N35.919 Unspecified urethral stricture, male, unspecified site; F22 Delusional disorders; R53.81 Other malaise; Z85.46 Personal history of malignant neoplasm of prostate; Z90.5 Acquired absence of kidney; Z89.411 Acquired absence of right great toe; Z82.49 Family history of ischemic heart disease and other diseases of the circulatory system; Y92.89 Other specified places as the place of occurrence of the external cause; Z95.1 Presence of aortocoronary bypass graft; F32.9 Major depressive disorder, single episode, unspecified
CPT/HCPCS: 10078; 10879; 50455

== ENCOUNTER → 2021-03-14 | Outpatient (CLI) | payer OTHER ==
[~2021-03-14] MED LIST changes: +LIDOCAINE 2%2 %/5 GM TOP; +SEROQUEL 25 MG25 M1 PO
== END ==
LOC: HYPER 07:54
PROVIDERS: ATTEND Emergency Medicine
DX: T87.89 Other complications of amputation stump (principal); E11.621 Type 2 diabetes mellitus with foot ulcer; L97.522 Non-pressure chronic ulcer of other part of left foot with fat layer exposed; E11.51 Type 2 diabetes mellitus with diabetic peripheral angiopathy without gangrene; I25.10 Atherosclerotic heart disease of native coronary artery without angina pectoris; E11.22 Type 2 diabetes mellitus with diabetic chronic kidney disease; I13.0 Hypertensive heart and chronic kidney disease with heart failure and stage 1 through stage 4 chronic kidney disease, or unspecified chronic kidney disease; I50.9 Heart failure, unspecified; N18.9 Chronic kidney disease, unspecified; E78.00 Pure hypercholesterolemia, unspecified; M19.90 Unspecified osteoarthritis, unspecified site; E78.5 Hyperlipidemia, unspecified; I25.2 Old myocardial infarction; M10.9 Gout, unspecified; Z85.46 Personal history of malignant neoplasm of prostate; Z86.718 Personal history of other venous thrombosis and embolism; Z95.1 Presence of aortocoronary bypass graft; Z90.5 Acquired absence of kidney; Z89.411 Acquired absence of right great toe; Y83.5 Amputation of limb(s) as the cause of abnormal reaction of the patient, or of later complication, without mention of misadventure at the time of the procedure

== ENCOUNTER → 2021-05-24 | Outpatient (CLI) | payer OTHER | LOC: SJCVCIMAG 08:15 | PROVIDERS: ATTEND Nuclear Medicine Nuclear Cardiology | DX: R94.31 Abnormal electrocardiogram [ECG] [EKG] (principal); I70.203 Unspecified atherosclerosis of native arteries of extremities, bilateral legs; I65.23 Occlusion and stenosis of bilateral carotid arteries; I11.9 Hypertensive heart disease without heart failure; I49.3 Ventricular premature depolarization; I25.10 Atherosclerotic heart disease of native coronary artery without angina pectoris; I77.9 Disorder of arteries and arterioles, unspecified; E78.00 Pure hypercholesterolemia, unspecified; E11.51 Type 2 diabetes mellitus with diabetic peripheral angiopathy without gangrene; Z79.4 Long term (current) use of insulin; I25.5 Ischemic cardiomyopathy; Z79.899 Other long term (current) drug therapy; Z88.5 Allergy status to narcotic agent ==

== ENCOUNTER → 2021-05-29 | Outpatient (CLI) | payer OTHER | LOC: HYPER 08:15 | PROVIDERS: ATTEND Emergency Medicine | DX: T87.89 Other complications of amputation stump (principal); E11.621 Type 2 diabetes mellitus with foot ulcer; L97.522 Non-pressure chronic ulcer of other part of left foot with fat layer exposed; E11.51 Type 2 diabetes mellitus with diabetic peripheral angiopathy without gangrene; E11.22 Type 2 diabetes mellitus with diabetic chronic kidney disease; I25.10 Atherosclerotic heart disease of native coronary artery without angina pectoris; I13.0 Hypertensive heart and chronic kidney disease with heart failure and stage 1 through stage 4 chronic kidney disease, or unspecified chronic kidney disease; I50.9 Heart failure, unspecified; N18.9 Chronic kidney disease, unspecified; E78.00 Pure hypercholesterolemia, unspecified; M19.90 Unspecified osteoarthritis, unspecified site; E78.5 Hyperlipidemia, unspecified; I25.2 Old myocardial infarction; I25.5 Ischemic cardiomyopathy; M10.9 Gout, unspecified; Z85.46 Personal history of malignant neoplasm of prostate; Z95.818 Presence of other cardiac implants and grafts; Z86.718 Personal history of other venous thrombosis and embolism; Z95.1 Presence of aortocoronary bypass graft; Z90.5 Acquired absence of kidney; Z79.82 Long term (current) use of aspirin; Z89.411 Acquired absence of right great toe; Y83.5 Amputation of limb(s) as the cause of abnormal reaction of the patient, or of later complication, without mention of misadventure at the time of the procedure ==

== ENCOUNTER → 2021-06-05 | Outpatient (CLI) | payer OTHER | LOC: HYPER 08:26 | PROVIDERS: ATTEND Emergency Medicine | DX: E11.621 Type 2 diabetes mellitus with foot ulcer (principal); L97.522 Non-pressure chronic ulcer of other part of left foot with fat layer exposed; E11.51 Type 2 diabetes mellitus with diabetic peripheral angiopathy without gangrene; E11.22 Type 2 diabetes mellitus with diabetic chronic kidney disease; I13.0 Hypertensive heart and chronic kidney disease with heart failure and stage 1 through stage 4 chronic kidney disease, or unspecified chronic kidney disease; I50.9 Heart failure, unspecified; N18.9 Chronic kidney disease, unspecified; I25.10 Atherosclerotic heart disease of native coronary artery without angina pectoris; E78.00 Pure hypercholesterolemia, unspecified; M19.90 Unspecified osteoarthritis, unspecified site; E78.5 Hyperlipidemia, unspecified; I25.2 Old myocardial infarction; I25.5 Ischemic cardiomyopathy; M10.9 Gout, unspecified; Z85.46 Personal history of malignant neoplasm of prostate; Z95.818 Presence of other cardiac implants and grafts; Z86.718 Personal history of other venous thrombosis and embolism; Z95.1 Presence of aortocoronary bypass graft; Z90.5 Acquired absence of kidney; Z79.82 Long term (current) use of aspirin; Z89.411 Acquired absence of right great toe ==

== ENCOUNTER 2021-06-19 15:46 | Inpatient (IN) | payer OTHER ==
[~2021-06-19] VITALS: Ht 172.7 cm; Wt 73.3 kg
--- NOTE | ~2021-06-19 | O ---
[facility] [place] [address] OPERATIVE REPORT Name: SIRENA SNYDER Room #: 462-P ADM IN M.R.#: [id number] Admission: 06/19/21 Attend Phys: Morales Wilkes MD Discharge: Date of : 49 Report #: [id number] THIS REPORT FOR: cc: Kevin Snider David J. DO Rizzi, Raymond M. DPM ~ DATE OF SERVICE: 06/20/2021 PREOPERATIVE DIAGNOSIS: Left second digit gangrene. POSTOPERATIVE DIAGNOSIS: Left second digit gangrene. PROCEDURE: Left partial second ray resection. ANESTHESIA: General with a local block consisting of 10 mL of 0.5% ropivacaine. TOURNIQUET: None. DESCRIPTION OF PROCEDURE: The patient was transported to the operating room, left on the bed and a partial ray resection was completed with a racquet type incision over the second MPJ dissecting free the second digit completely and taken deep tissue for aerobic, anaerobic and fungal. I removed the second metatarsal distal half of the sagittal saw. I removed any capsular or tendinous tissue in the area. Area looked excellent after debriding it. There was only good bleeding tissue left, although there was minimal blood flow, it appeared to be possibly adequate for wound healing. I then closed the wound with 2-0 nylon and also a #2 Ethibond. The patient did well. We did a Xeroform covering and fluffs and Kerlix with James bandage loosely applied. The patient tolerated the procedure well and left the operating room in stable condition with vital signs stable and vascular intact. By: [id number] Jase Pritchett, MICHELLE /nt
--- NOTE | ~2021-06-19 | H ---
[facility] [place] [address] HISTORY AND PHYSICAL Name: SIRENA SNYDER Room #: 462-P ADM IN M.R.#: [id number] Admission: 06/19/21 Attend Phys: Morales Wilkes MD Discharge: Date of : 49 Report #: [id number] THIS REPORT FOR: cc: Kevin Snider David J. DO Rizzi, Raymond M. DPM ~ DATE OF SERVICE: 06/19/2021 INTRODUCTION: This is a 76-year-old -[place] male who I am very familiar with from doing a previous left partial first ray resection, which healed nicely. He now has a second digit necrotic toe. The patient noted this toe being blackened over the last 3-4 weeks. I have asked him to follow up in my office and it was very well demarcated distal necrotic toe, which was basically dry gangrene and we are waiting for it to auto amputate. In the meantime, the patient and I discussed if any redness or drainage to call me immediately or call to Dr. Mac immediately. The patient was seen by Dr. Mac and admitted to the hospital for further evaluation of the left second digit. The patient has significantly compromised blood flow and has been treated by Dr. Ybarra in the past. PAST MEDICAL HISTORY: Noted for hyperthyroidism, PVD, CAD, diabetes, left heart cath, hypertension, HLD, prostate cancer, ischemic cardiomyopathy, right nephrectomy, vascular ulcer of right toe and left hallux amputation as well. He has psychosis, depression and aggressive behaviors. MEDICATIONS: List in chart, metoprolol, Seroquel, lidocaine, Pepcid, Carafate, insulin, Effient, methimazole. ALLERGIES: BACTRIM, ATORVASTATIN, CODEINE, AND TRAMADOL. PREVIOUS SURGERIES: Previous right and left hallux amputations, left heart cath and also status post a right lower extremity angio and stent. FAMILY HISTORY: Noncontributory. SOCIAL HISTORY: The patient has no history of tobacco, alcohol or drug use. PHYSICAL EXAMINATION: Well documented in the chart already, I defer that. The left lower extremity shows a left second digit necrotic distal half, which is basically dry gangrene. There is some slight drainage and redness on the proximal aspect of the digit. [address] [address] HISTORY AND PHYSICAL Name: SIRENA SNYDER Room #: 2 ADM IN M.R.#: [id number] Admission: 06/19/21 Attend Phys: Morales Wilkes MD Discharge: Date of : 49 Report #: [id number] Vascular has been reviewed by Dr. Ybarra and well documented. IMAGING: X-rays on the chart have been reviewed. ASSESSMENT: Diabetic foot ulcer with dry gangrene, left second digit. PLAN: For a partial second ray amputation. The patient understands the surgery and possible complications such as delayed healing and possible need for transmetatarsal amputation or below-knee amputation in the future. By: 1432 1524 Jase Pritchett, MICHELLE /nt
[~2021-06-19 15:46] MED LIST changes: -ALLOPURINOL 10100 M2 PO; -CARAFATE 1 GM TA1 GM PO; -DORYX MPC120 MG PO; -GRALISE1 EAC1 PO; -HUMALOG100 UNIT/1 SUBQ; -HYDRALAZINE 2525 MG PO; -NORVASC10 MG PO; -TRESIBA FL100 UNIT/1 SUBQ; -UNASYN 3 GM VIAL3 G1 IV; -VALSARTAN320 MG PO; -ZOSYN 3/0.373.375 G3 IV; -ZOSYN 3/0.373.375 G3 IVPB
[2021-06-19 15:53] VITALS: BP 187/82
--- NOTE | 2021-06-19 16:47 | NUR ---
PT. GRANDDAUGHTER=REE HERNANDEZ [phone]. PLEASE CALL WHEN PT. HAS ROOM ASSIGNMENT.
[2021-06-19 17:19] VITALS: BP 187/82
--- NOTE | 2021-06-19 18:04 | NUR ---
PT ARRIVED TO 4W AT 1750 ACCMPANIED BY ED GRAVITY PROSPECTING SUPERVISOR. PT ALERT AND ORIENTED X4. DENIES ANY PAIN. BP ELEVATED ON ARRIVAL 181/78. MEOPROLOL PO GIVEN PER ORDER. PT EDUCATED TO ROOM AND CALL LIGHT. DR MUNOZ IN ROOM AT 1810. WILL CONTINUE TO MONITOR.
[2021-06-19 19:43] VITALS: BP 142/73
[2021-06-19 20:11] LABS: HEMOGLOBIN 10.5 gm/dL (14.0-18.0); MCH 30.6 pg (26.0-34.0); MCHC 31.8 g/dL (28.0-37.0); MCV 96.3 fL (80.0-100.0); RBC 3.43 mil/uL (4.50-6.00); RDW 14.1 % (10.5-14.5); WBC 6.1 thou/uL (4.0-11.0)
[2021-06-19 20:17] LABS: CALCIUM 9.1 mg/dL (8.5-10.1); CREATININE 1.6 mg/dL (0.7-1.3); POTASSIUM 4.8 mmol/L (3.5-5.1)
[2021-06-19 20:22] LABS: PROTIME 10.9 Seconds (10.5-12.1)
[2021-06-20 05:20] LABS: HEMATOCRIT 29.1 % (42.0-52.0); HEMOGLOBIN 9.6 gm/dL (14.0-18.0); MCH 31.4 pg (26.0-34.0); MCHC 33.1 g/dL (28.0-37.0); MCV 95.1 fL (80.0-100.0); RBC 3.06 mil/uL (4.50-6.00); RDW 13.7 % (10.5-14.5); WBC 5.2 thou/uL (4.0-11.0)
[2021-06-20 06:19] LABS: ALBUMIN 2.5 g/dL (3.4-5.0); CALCIUM 8.5 mg/dL (8.5-10.1); CREATININE 1.6 mg/dL (0.7-1.3); POTASSIUM 4.4 mmol/L (3.5-5.1); TOTAL BILIRUBIN 0.4 mg/dL (0.2-1.0); TOTAL PROTEIN 6.2 g/dL (6.4-8.2)
--- NOTE | 2021-06-20 06:40 | NUR ---
patient aox4 makes needs known. patient admitted for left foot 2nd toe amputation. left foot 2nd toe is black in color with a strong odor, no drainage. dr pavon called with new order of npo after 0800, surgery will be at 1600. patient denied pain or discomfort. patient told his nurse the will bring current meds.meds on reconcille are not current.patient refused seroquel.fall precaution in place.patient in bed asleep at this time breathing regular and unlaboured.
[2021-06-20 07:21] VITALS: BP 146/84
[2021-06-20] MEDS ORDERED: ROSUVASTATIN CA20 MG PO (12:30)
[2021-06-20] MEDS ORDERED: VALSARTAN320 MG PO (12:30)
[2021-06-20] MEDS ORDERED: HUMALOG100 UNIT/1 SUBQ (12:32)
[2021-06-20] MEDS ORDERED: TRESIBA FL100 UNIT/1 SUBQ (12:33)
[2021-06-20] MEDS ORDERED: DORYX MPC120 MG PO (12:34)
[2021-06-20] MEDS ORDERED: GRALISE1 EAC1 PO (12:36)
[2021-06-20] MEDS ORDERED: CARAFATE 1 GM TA1 GM PO (12:38)
[2021-06-20 18:31] VITALS: BP 160/60
[2021-06-20 19:40] VITALS: BP 161/67
--- NOTE | 2021-06-21 01:15 | NUR ---
UPON SHIFT REPORT, DRESSING TO LEFT FOOT SATURATED WITH BLOODY DRAINAGE. RECEIVED REPORT THAT DRESSING ONLY TO BE REINFORCED, NOT TO REMOVE KERLIX. STEPHEN BANDAGES REMOVED, KERLIX REINFORCED WITH GAUZE SPONGES, KERLIX AND WRAPPED WITH NEW STEPHEN BANDAGES. UPON SHIFT ASSESSMENT, PT AOX4. PT REPORTS 4/10 PAIN IN LEFT FOOT. PT RECEIVING PRN PO APAP Q4HR. PT DENIES SOB WHILE ON ROOM AIR. PT TOLERATING PO INTAKE OF FLUIDS AND CLEAR LIQUID DIET WITHOUT ISSUE. PT WITHOUT NAUSEA OR EMESIS. PT RESTING IN BED THROUGHOUT SHIFT, VOIDING PER URINAL. FREQUENT REPOSITIONING ENCOURAGED WHILE IN BED, PT NOTED TO SHIFT INDEPENDENTLY. PT REPORTS NUMBNESS IN LEFT FOOT. CAPILLARY REFILL LESS THAN 3SEC, PERIPHERAL PULSES PALPABLE IN BUE, UNABLE TO ASSESS PULSES IN LLE, AND FAINT PULSES IN RLE. PT ENCOURAGED TO NOTIFY STAFF FOR ALL NEEDS, CALL LIGHT WITHIN REACH, BED ALARM ON, BED LOCKED IN LOWEST POSITION, ROOM REMAINS NEAR NURSES STATION, FREQUENT MONITORING WILL CONTINUE.
[2021-06-21 05:11] LABS: HEMATOCRIT 31.6 % (42.0-52.0); HEMOGLOBIN 10.5 gm/dL (14.0-18.0)
[2021-06-21 05:38] LABS: POTASSIUM 6.1 mmol/L (3.5-5.1)
[2021-06-21 07:50] VITALS: BP 159/65
--- NOTE | 2021-06-21 10:59 | HC ---
[facility] [place] [address] CONSULTATION Name: SIRENA SNYDER Room #: 4- ADM IN M.R.#: [id number] Admission: 06/19/21 Attend Phys: Morales Wilkes MD Discharge: Date of : 49 Report #: [id number] THIS REPORT FOR: cc: Kevin Snider David J. DO Barry, Joseph W. MD ~ DATE OF SERVICE: 06/20/2021 INFECTIOUS DISEASE CONSULTATION ATTENDING PHYSICIAN: Dr. Wilkes. REASON FOR EVALUATION: Gangrene, second left toe. HISTORY OF PRESENT ILLNESS: Chart reviewed. The patient examined. This is a 76-year-old gentleman with diabetes mellitus, has been complicated by widespread vasculopathy including coronary artery disease, also has peripheral vascular disease. 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 He is following at wound care center and after evaluation was recommended to present himself to the Emergency Room where he was tested for COVID, which was negative and admitted. He is scheduled to undergo operative debridement including probable toe amputation today. He denies significant pain at this point. He has not been systemically ill. No fevers or chills. Appetite has been fair. He was found to have a creatinine of 1.6, glucose has been variable, but primarily adequately controlled. He has not been febrile. He was empirically started on combination therapy with vancomycin and Zosyn. He denies any dyspnea. No other GI related complaints. ALLERGIES: CODEINE, BACTRIM, TRAMADOL, ATORVASTATIN. CURRENT MEDICATIONS: Include olmesartan, amlodipine, allopurinol, methimazole, Zosyn, insulin, quetiapine, sucralfate, famotidine, vancomycin, metoprolol. PAST MEDICAL HISTORY: Above noted diabetes mellitus type 2, insulin requiring, complicated by widespread vasculopathy; has coronary artery disease; peripheral arterial disease with history of nonhealing ulcers of the distal lower extremities with previous stenting on the right; hyperthyroidism; hypertension; hyperlipidemia; prostate cancer; does have a cardiomyopathy; previous right nephrectomy; mild dementia. SOCIAL HISTORY: Former smoker. No illicit drug use. No ethanol. FAMILY HISTORY: Noncontributory. [address] [address] CONSULTATION Name: SIRENA SNYDER Room #: 4[facility] IN M.R.#: [id number] Admission: 06/19/21 Attend Phys: Morales Wilkes MD Discharge: Date of : 49 Report #: [id number] REVIEW OF SYSTEMS: Otherwise, unremarkable. PHYSICAL EXAMINATION: GENERAL: He is pleasant, alert, cooperative, mild to moderate distress, appears somewhat chronically ill, undernourished. VITAL SIGNS: Temperature 97.9, pulse 58, respirations 18, blood pressure 146/84. SKIN: Warm, dry, no rashes. HEENT: Normocephalic. Extraocular muscles intact. NECK: Supple. LUNGS: Diminished breath sounds. Few scattered crackles at the bases posteriorly. HEART: Regular, borderline bradycardic. I do not appreciate murmur. ABDOMEN: Slightly distended, generally soft, nontender. EXTREMITIES: There is a dressing over the left foot. There is evident odor. GENITOURINARY: Deferred. RECTAL: Deferred. LABORATORY DATA: Electrolytes: Sodium 142, potassium 4.4, chloride 110, bicarbonate is 20, anion gap of 12, BUN and creatinine 35 and 1.6, glucose of 147. LFTs unremarkable. Albumin of 2.5, total protein 6.5. CBC: White count of 5.2, H and H is 9.6 and 29.1, platelets of 155. PT of 10.9, INR of 1.00. ASSESSMENT AND PLAN: Left second toe gangrene. The patient has known peripheral vascular disease. He is scheduled to undergo operative toe amputation and additional debridement is required. I think it is reasonable to continue broad spectrum therapy. Certainly, it would appear to be a mixed aerobic, anaerobic infection, presumably both gram positive and gram negative as well. We will have to monitor his kidney function. We will follow up postop. Await cultures and path report. Continue wound care as prescribed. <ELECTRONICALLY SIGNED> By: Sam Morrell MD 06/21/21 1059 1402 0012 Sam Morrell MD /nt
[2021-06-21 15:19] LABS: CALCIUM 8.8 mg/dL (8.5-10.1); CREATININE 1.9 mg/dL (0.7-1.3)
[2021-06-21 15:30] LABS: POTASSIUM 5.3 mmol/L (3.5-5.1)
[2021-06-21 15:42] VITALS: BP 131/72
--- NOTE | 2021-06-21 17:20 | NUR ---
A RIGHT #4F SINGLE LUMEN PICC PLACED PER HOSPITAL POLICY, RISKS AND BENIFITS WERE DISCUSSED PRIOR TO PLACEMENT AND HE VERBALIZED UNDERSTANDING. THE RIGHT BRACHIAL VEIN WAS WIDLEY PATENT. THE LINE WAS TRIMMED TO 48CM AND ADVANCED WITHOUT DIFFICULTY. THE LINE WAS CONFIRMED AT 3CM EXTERNAL USING SHERLOCK 3CG. LINE SECURED AND RELEASED FOR USE
[2021-06-21 20:00] VITALS: BP 141/54
--- NOTE | 2021-06-22 05:04 | NUR ---
ASSUMED PT CARE THIS PM. PT IS ALERT AND ORIENTEDX4. PT HAS DRSG TO THE L FOOT WHICH IS C/D/I WITH NO DRAINAGE. PAIN IS MANAGED BY PRN MEDS. PT HAS PICC WITH SINGLE TO THE DENNY WHICH IS PATENT. PT DID NOT VERBALIZE ANY CONCERNS AND NO VISIBLE SIGN OF DISTRESS WAS NOTED. FALL PRECAUTIONS IN PLACE. WILL CONTINUE TO MONITOR.
[2021-06-22 11:30] VITALS: BP 140/58
[2021-06-22 15:49] VITALS: BP 131/73
--- NOTE | 2021-06-22 16:41 | NUR ---
A/O X 4. ROOM AIR. STAND BY ASSIST WITH WALKER. GIANNA ON TELE. LEFT UPPER ARM PICC SINGLE LUMEN WITH NS INFUSING @ 75 MLS/HR. LEFT FOOT IS WRAPPED WITH STEPHEN WRAP NO DRAINAGE NOTED. GIANNA ON TELE. NO PAIN. ABLE TO MOVE AROUND WITH SHOE ON FOOT.
--- NOTE | 2021-06-22 16:47 | NUR ---
STILL AWAITING FINAL CULTURES. ONCE RECEIVED THEY WANT HOME INFUSION [facility] P: F: . REFERRAL SENT TO [facility] P: AND fAX TO .
[2021-06-22 22:11] VITALS: BP 125/64
--- NOTE | 2021-06-23 06:39 | NUR ---
ASSUMED PT CARE THIS PM. PT IS ALERT AND ORIENTED X4. PT HAS DRSG TO THE L FOOT WHICH IS C/D/I. PT HAS PICC WITH SINGLE LUMEN TO THE CRISTOFER WHICH IS PATENT WITH NO SIGN OF REDNESS. PT TOLERATING RA. MEDS GIVEN PER EM[facility] ORDERS. FALL PRECAUTIONS IN PLACE. WILL CONTINUE TO MONITOR.
[2021-06-23 08:20] VITALS: BP 145/73
--- NOTE | 2021-06-23 14:57 | NUR ---
ASSUMED PT CARE THIS AM. PT A&OX4, ABLE TO MAKE NEEDS KNOWN. PATIENT REMAINS CONTINENT, UP TO BATHROOM INDEPENDENTLY. PATIENT IV PATENT, MEDICATIONS INFUSING WITHOUT ISSUE. PO MEDICATIONS TAKEN WITHOUT ISSUE WELL. PATIENT REPORTS MINIMAL PAIN IN HIS LEFT FOOT THAT INCREASES WITH AMBULATION AND DECREASES WITH TYLENOL GIVEN. PATIENT DENIES ANY NUMBNESS. DRESSING IS C/D/I. CALL LIGHT WITHIN REACH.
[2021-06-23] MEDS ORDERED: PEPCID20 MG PO (15:42)
[2021-06-23] MEDS ORDERED: NORVASC10 MG PO (15:42)
[2021-06-23] MEDS ORDERED: ALLOPURINOL 10100 M2 PO (15:42)
[2021-06-23] MEDS ORDERED: ZOSYN 3/0.373.375 G3 IV (15:59)
[2021-06-23 17:40] VITALS: BP 155/65
[2021-06-23 19:47] VITALS: BP 144/69
--- NOTE | 2021-06-23 21:01 | NUR ---
Pt did not discharge d/t HH not available over the weekend to do wound care. CM nightclub manager customer consulting manager Lora notified and will follow up Friday.
[2021-06-24] VITALS (9 sets, daily range): BP systolic 148–169; BP diastolic 69–85
[2021-06-24] MEDS ORDERED: ZOSYN 3/0.373.375 G3 IVPB (12:49)
[2021-06-24 23:23] LABS: HEMATOCRIT 29.4 % (42.0-52.0); HEMOGLOBIN 9.4 gm/dL (14.0-18.0); MCH 31.1 pg (26.0-34.0); RBC 3.03 mil/uL (4.50-6.00); RDW 14.1 % (10.5-14.5); WBC 5.4 thou/uL (4.0-11.0)
[2021-06-24 23:26] LABS: CALCIUM 8.9 mg/dL (8.5-10.1); CREATININE 1.9 mg/dL (0.7-1.3); POTASSIUM 4.3 mmol/L (3.5-5.1)
--- NOTE | 2021-06-25 03:55 | NUR ---
ASSUMED PT CARE THIS PM. PT IS ALERT AND OIRENTED X4. PT HAS DRSG TO THE L WHICH IS C/D/I WITH NO SIGN OF DRAINAGE. PT HAS PICC WITH SINGLE LUMEN TO THE CRISTOFER WHICH IS PATENT. PT DID NOT C/O PAIN. PT DID NOT VERBALIZE ANY CONCERNS. MEDS WERE GIVEN PER EMAR ORDERS. PT IS TOLERATING RA. FALL PRECAUTIONS IN PLACE. WILL CONTINUE TO MONITOR.
[2021-06-25 08:07] VITALS: BP 182/93
--- NOTE | 2021-06-25 10:07 | PATH ---
[facility] [address] [place] [address] PATHOLOGY RPT PROCEDURE Name: LAW SNYDER Room #: 464-P ADM IN M.R.#: [id number] Admission: 06/19/21 Date of : 49 Discharge: Report #: [id number] Path Case #: [id number] [facility] Accession Number: [id number] . 01 Material submitted: . toe - LEFT SECOND TOE. Modifiers: left . 02 Diagnosis: Toe, left second toe, amputation: - Skin and subcutaneous tissue with ulceration and gangrenous necrosis. - Acute osteomyelitis. - Bone margins viable. - Skin and soft tissue margin viable. (IUV/db; 06/22/2021) LBQ 06/22/2021 1453 Local . 02 Electronically signed: . Jodi Cordoba MD, Pathologist NPI- [id number] . 01 Gross description: . The specimen is received in formalin, labeled "Law Snyder, left 2nd toe" and consists of a disarticulated amputated toe (4.6 cm in length by 2.5 x 2.0 cm) without an attached nail. The distal end displays a pale yellow to darnell dusky firm and mummified lesion (5.5 x 3.3 cm) that comes to within 0.4 cm of the nearest skin and soft tissue margin (inked black). The articular surface is smooth, firm and unremarkable. The uninvolved skin is darnell-roman, dusky and granular. Sectioning reveals dusky, márquez and focally softened underlying bone. Party Coordinator sections are submitted in 2 cassettes following decalcification as follows: A1: Skin and underlying soft tissue at margin (submitted en face), represented and articular surface at margin (submitted on edge), represented A2: Cross section of digit to show bone underlying the lesion (submitted en face), represented and section to show lesion transition to uninvolved skin, submitted on edge (EKUK; 06/21/2021) DKA/DKA 06/21/2021 1323 Local . 02 Pathologist provided ICD-10: L97.529, I96, M86.172 . 02 CPT . 758703, [id number] Specimen Comment: A courtesy copy of this report has been sent to [phone] Specimen Comment: Report sent to Performed at: [address] [place] [address] PATHOLOGY RPT PROCEDURE Name: LAW SNYDER Room #: 464-P ADM IN M.R.#: [id number] Admission: 06/19/21 Date of : 49 Discharge: Report #: [id number] Path Case #: [id number] [id number] [facility] [address], [place], [place] [id number] MD Sudhakar Melvin MD Phone: [phone] Performed at: [address] [place] [id number] MD Jodi Cordoba MD Phone: [phone]
[2021-06-25 11:07] VITALS: BP 148/85
[2021-06-25] MEDS ORDERED: HYDRALAZINE 2525 MG PO (12:16)
[2021-06-25] MEDS ORDERED: PEPCID20 MG PO (12:16)
[2021-06-25] MEDS ORDERED: LIDOCAINE 2%2 %/5 GM TOP (12:16)
[2021-06-25] MEDS ORDERED: HUMALOG100 UNIT/1 SUBQ (12:16)
[2021-06-25] MEDS ORDERED: UNASYN 3 GM VIAL3 G1 IV (12:16)
--- NOTE | 2021-06-25 12:42 | NUR ---
ASSUMED PT CARE THIS AM. PT A&OX4, ABLE TO MAKE NEEDS KNOWN. PATIENT REPORTING NO PAIN, REPORTS TINGLING IN HIS LEFT FOOT HOWEVER. DRESSING TO LEFT FOOT IS C/D/I. MEDICATIONS TAKEN WITHOUT ISSUE. IV REMAINS PATENT, MEDICATION INFUSING WITHOUT ISSUE. CALL LIGHT WITHIN REACH.
--- NOTE | 2021-06-25 16:38 | NUR ---
PT TO DC HOME THIS DAY WITH HOME INFUSION THROUGH [facility]. CM FAXED ORDERS TO BOTH [facility] AND [facility]ION NURSE VISITED PT AND SPOUSE AT BEDSIDE AGAIN TODAY. PT'S SPOUE PROVIDED TRANSPORT HOME THIS DAY. NO OTHER CM INTERVENTION INDICATED. CASE CLOSED.
--- NOTE | 2021-06-26 16:12 | HC ---
[facility] [place] [address] CONSULTATION Name: SIRENA SNYDER Room #: 464-[facility] IN M.R.#: [id number] Admission: 06/19/21 Attend Phys: Morales Wilkes MD Discharge: 06/25/21 Date of : 49 Report #: [id number] THIS REPORT FOR: cc: Kevin Snider David J. DO Althoff, Jeffrey R. MD ~ DATE OF SERVICE: 06/21/2021 CHIEF COMPLAINT: Surgical wound to the left foot. HISTORY OF PRESENT ILLNESS: This is a 76-year-old male patient who is followed in the wound clinic by my partner, Dr. Mac. He was admitted for a gangrenous toe. He has undergone surgical amputation by Dr. Pritchett. I have asked to see him with regard to ongoing wound care. The patient denies significant pain at this time. PAST MEDICAL HISTORY: Positive for hypertension, diabetes, peripheral arterial disease, coronary artery disease status post CABG. FAMILY HISTORY: Positive for diabetes mellitus. SOCIAL HISTORY: Negative for alcohol or tobacco use. ALLERGIES: INCLUDE BACTRIM, ATORVASTATIN, CODEINE, AND TRAMADOL. MEDICATIONS: Metoprolol, quetiapine, lidocaine, famotidine and sucralfate. REVIEW OF SYSTEMS: CONSTITUTIONAL: Denies fever, chills, weight loss. NEUROLOGICAL: Denies focal weakness, numbness, tingling. EYES: The patient denies visual changes or drainage. ENT: The patient denies earache, no sore throat. CARDIOVASCULAR: The patient denies chest pain, palpitations, diaphoresis. PULMONARY: No cough, shortness of breath. GASTROINTESTINAL: No nausea, vomiting, diarrhea or pain. ORTHOPEDIC: The patient is aware of the surgical wound and the toe necrosis. Others systems in a 14-point review of systems are negative. PHYSICAL EXAMINATION: VITAL SIGNS: At this time include temperature 36.6, pulse 53, respiratory rate 18, blood pressure 115/65. GENERAL: This is a somewhat chronically ill-appearing male patient appears in no distress. HEENT: Normocephalic. Nose and throat clear. NECK: Supple. LUNGS: Clear. [facility] [address] [place] [address] CONSULTATION Name: SIRENA SNYDER Room #: 464-P DIS IN M.R.#: [id number] Admission: 06/19/21 Attend Phys: Morales Wilkes MD Discharge: 06/25/21 Date of : 49 Report #: [id number] ABDOMEN: Soft, bowel sounds present. EXTREMITIES: Examination of the lower extremities demonstrate surgical site appears to be intact with no evidence of overt infection at this time. CLINICAL IMPRESSION: 1. Left second partial ray resection of the left foot. 2. History of left and right great toe amputations. 3. Peripheral arterial disease, status post percutaneous intervention. 4. Diabetes mellitus. 5. Hypertension. 6. Hyperlipidemia. RECOMMENDATIONS: We will recommend surgical dressings to be left in place and then we will start with Kourtney Clairex, James wrap. Elevation as much as possible. Nutritional support to maximize wound healing. I appreciate being asked to see him in consultation. <ELECTRONICALLY SIGNED> By: Perry Huang MD 06/26/21 1612 [id number] [id number] Perry Huang MD /nt
== END 2021-06-25 15:22 | disposition home health service (06) | DRG 239 ==
LOC: ER 15:46 → EROBS 17:14 → 4W 17:14
PROVIDERS: Hospitalist; Podiatrist Foot & Ankle Surgery; ADMIT Hospitalist; ATTEND Hospitalist
PROC: 0Y6N0ZB Detachment at Left Foot, Partial 2nd Ray, Open Approach (ICD-10-PCS; principal; 2021-06-20)
PROC: 05HY33Z Insertion of Infusion Device into Upper Vein, Percutaneous Approach (ICD-10-PCS; 2021-06-21)
DX: E11.52 Type 2 diabetes mellitus with diabetic peripheral angiopathy with gangrene (principal); E43 Unspecified severe protein-calorie malnutrition; I96 Gangrene, not elsewhere classified; L03.115 Cellulitis of right lower limb; L02.611 Cutaneous abscess of right foot; E87.2 Acidosis; E11.22 Type 2 diabetes mellitus with diabetic chronic kidney disease; I12.9 Hypertensive chronic kidney disease with stage 1 through stage 4 chronic kidney disease, or unspecified chronic kidney disease; N18.2 Chronic kidney disease, stage 2 (mild); I25.10 Atherosclerotic heart disease of native coronary artery without angina pectoris; E05.90 Thyrotoxicosis, unspecified without thyrotoxic crisis or storm; I25.5 Ischemic cardiomyopathy; Z20.822 Contact with and (suspected) exposure to COVID-19; M19.90 Unspecified osteoarthritis, unspecified site; E78.5 Hyperlipidemia, unspecified; E11.621 Type 2 diabetes mellitus with foot ulcer; E87.5 Hyperkalemia; F03.90 Unspecified dementia, unspecified severity, without behavioral disturbance, psychotic disturbance, mood disturbance, and anxiety; R53.81 Other malaise; G89.29 Other chronic pain; M54.5 Low back pain; M48.00 Spinal stenosis, site unspecified; Z83.3 Family history of diabetes mellitus; Z89.429 Acquired absence of other toe(s), unspecified side; Z90.5 Acquired absence of kidney; Z95.1 Presence of aortocoronary bypass graft; Z85.46 Personal history of malignant neoplasm of prostate; Z68.24 Body mass index [BMI] 24.0-24.9, adult; Z95.820 Peripheral vascular angioplasty status with implants and grafts; Z08 Encounter for follow-up examination after completed treatment for malignant neoplasm; Z89.412 Acquired absence of left great toe; Z88.6 Allergy status to analgesic agent; Z88.2 Allergy status to sulfonamides; Z88.8 Allergy status to other drugs, medicaments and biological substances; Z87.891 Personal history of nicotine dependence
CPT/HCPCS: 10045; 10047; 27000; 50010; 50101; 50386; 50951; 56525; 56527; 57091; 62110; 62900; 70005

== ENCOUNTER → 2021-06-19 | Outpatient (CLI) | payer OTHER ==
[~2021-06-19] MED LIST changes: +ALLOPURINOL 10100 M2 PO; +CARAFATE 1 GM TA1 GM PO; +DORYX MPC120 MG PO; +GRALISE1 EAC1 PO; +HUMALOG100 UNIT/1 SUBQ; +HYDRALAZINE 2525 MG PO; +NORVASC10 MG PO; +TRESIBA FL100 UNIT/1 SUBQ; +UNASYN 3 GM VIAL3 G1 IV; +VALSARTAN320 MG PO; +ZOSYN 3/0.373.375 G3 IV; +ZOSYN 3/0.373.375 G3 IVPB
== END ==
LOC: HYPER 08:14
PROVIDERS: ATTEND Emergency Medicine
DX: E11.621 Type 2 diabetes mellitus with foot ulcer (principal); L97.522 Non-pressure chronic ulcer of other part of left foot with fat layer exposed; E11.51 Type 2 diabetes mellitus with diabetic peripheral angiopathy without gangrene; E11.22 Type 2 diabetes mellitus with diabetic chronic kidney disease; I13.0 Hypertensive heart and chronic kidney disease with heart failure and stage 1 through stage 4 chronic kidney disease, or unspecified chronic kidney disease; I50.9 Heart failure, unspecified; N18.9 Chronic kidney disease, unspecified; I25.10 Atherosclerotic heart disease of native coronary artery without angina pectoris; E78.00 Pure hypercholesterolemia, unspecified; M19.90 Unspecified osteoarthritis, unspecified site; E78.5 Hyperlipidemia, unspecified; I25.2 Old myocardial infarction; I25.5 Ischemic cardiomyopathy; K21.9 Gastro-esophageal reflux disease without esophagitis; M10.9 Gout, unspecified; Z85.46 Personal history of malignant neoplasm of prostate; Z95.818 Presence of other cardiac implants and grafts; Z86.718 Personal history of other venous thrombosis and embolism; Z95.1 Presence of aortocoronary bypass graft; Z90.5 Acquired absence of kidney; Z79.82 Long term (current) use of aspirin; Z89.411 Acquired absence of right great toe; Z89.412 Acquired absence of left great toe

== ENCOUNTER 2021-07-02 15:23 | Emergency (ER) | payer OTHER ==
[~2021-07-02] VITALS: Ht 172.7 cm; Wt 72.6 kg
[~2021-07-02 15:23] MED LIST changes: +ALLOPURINOL 10100 M2 PO; +CARAFATE 1 GM TA1 GM PO; +DORYX MPC120 MG PO; +GRALISE1 EAC1 PO; +HUMALOG100 UNIT/1 SUBQ; +HYDRALAZINE 2525 MG PO; +NORVASC10 MG PO; +TRESIBA FL100 UNIT/1 SUBQ; +UNASYN 3 GM VIAL3 G1 IV; +VALSARTAN320 MG PO; +ZOSYN 3/0.373.375 G3 IV; +ZOSYN 3/0.373.375 G3 IVPB
--- NOTE | 2021-07-02 16:44 | NUR ---
vat called to see pt, no br or able to flush PICC line. HVN changed drg today pt stated.Dressing removed and redressed then power flushed easily with brisk blood return. ER nurse informed that PICC is functioning well now.
[2021-07-02 16:45] VITALS: BP 141/76
== END 2021-07-02 16:45 | disposition home or self-care (01) ==
LOC: ER 15:23
DX: T82.898A Other specified complication of vascular prosthetic devices, implants and grafts, initial encounter (principal); M19.90 Unspecified osteoarthritis, unspecified site; E11.9 Type 2 diabetes mellitus without complications; I10 Essential (primary) hypertension; E78.5 Hyperlipidemia, unspecified; Z79.4 Long term (current) use of insulin; Z79.82 Long term (current) use of aspirin; Z88.2 Allergy status to sulfonamides; Z88.5 Allergy status to narcotic agent

== ENCOUNTER → 2021-07-17 | Outpatient (CLI) | payer OTHER | LOC: HYPER 09:41 | PROVIDERS: ATTEND Emergency Medicine | DX: T87.89 Other complications of amputation stump (principal); E11.621 Type 2 diabetes mellitus with foot ulcer; L97.522 Non-pressure chronic ulcer of other part of left foot with fat layer exposed; E11.51 Type 2 diabetes mellitus with diabetic peripheral angiopathy without gangrene; E11.22 Type 2 diabetes mellitus with diabetic chronic kidney disease; I13.0 Hypertensive heart and chronic kidney disease with heart failure and stage 1 through stage 4 chronic kidney disease, or unspecified chronic kidney disease; I50.9 Heart failure, unspecified; N18.9 Chronic kidney disease, unspecified; I25.10 Atherosclerotic heart disease of native coronary artery without angina pectoris; E78.00 Pure hypercholesterolemia, unspecified; M19.90 Unspecified osteoarthritis, unspecified site; E78.5 Hyperlipidemia, unspecified; I25.2 Old myocardial infarction; I25.5 Ischemic cardiomyopathy; K21.9 Gastro-esophageal reflux disease without esophagitis; M10.9 Gout, unspecified; Z85.46 Personal history of malignant neoplasm of prostate; Z95.818 Presence of other cardiac implants and grafts; Z86.718 Personal history of other venous thrombosis and embolism; Z95.1 Presence of aortocoronary bypass graft; Z90.5 Acquired absence of kidney; Z79.82 Long term (current) use of aspirin; Z89.411 Acquired absence of right great toe; Z89.412 Acquired absence of left great toe; Y83.5 Amputation of limb(s) as the cause of abnormal reaction of the patient, or of later complication, without mention of misadventure at the time of the procedure ==

== ENCOUNTER → 2021-07-31 | Outpatient (CLI) | payer OTHER | LOC: HYPER 11:49 | PROVIDERS: ATTEND Emergency Medicine | DX: T87.89 Other complications of amputation stump (principal); E11.621 Type 2 diabetes mellitus with foot ulcer; L97.522 Non-pressure chronic ulcer of other part of left foot with fat layer exposed; L84 Corns and callosities; R60.0 Localized edema; E11.51 Type 2 diabetes mellitus with diabetic peripheral angiopathy without gangrene; E11.22 Type 2 diabetes mellitus with diabetic chronic kidney disease; I13.0 Hypertensive heart and chronic kidney disease with heart failure and stage 1 through stage 4 chronic kidney disease, or unspecified chronic kidney disease; I50.9 Heart failure, unspecified; N18.9 Chronic kidney disease, unspecified; I25.10 Atherosclerotic heart disease of native coronary artery without angina pectoris; E78.00 Pure hypercholesterolemia, unspecified; M19.90 Unspecified osteoarthritis, unspecified site; E78.5 Hyperlipidemia, unspecified; I25.2 Old myocardial infarction; I25.5 Ischemic cardiomyopathy; K21.9 Gastro-esophageal reflux disease without esophagitis; M10.9 Gout, unspecified; Z85.46 Personal history of malignant neoplasm of prostate; Z95.818 Presence of other cardiac implants and grafts; Z86.718 Personal history of other venous thrombosis and embolism; Z95.1 Presence of aortocoronary bypass graft; Z90.5 Acquired absence of kidney; Z79.82 Long term (current) use of aspirin; Z89.411 Acquired absence of right great toe; Z89.412 Acquired absence of left great toe; Y83.5 Amputation of limb(s) as the cause of abnormal reaction of the patient, or of later complication, without mention of misadventure at the time of the procedure ==